=== PATIENT | male | born 1955 | race Caucasian/White ===

== ENCOUNTER 2023-11-04 19:50 | Inpatient (IN) | payer MEDICARE, OTHER, SELFPAY ==
[2023-11-04 17:17] VITALS: BP 155/82
[2023-11-04 17:17] LABS: Glucose - Point of Care 90 mg/dl (70-99)
[2023-11-04 17:22] VITALS: BMI 30.3
--- NOTE | 2023-11-04 17:22 | EDRN ---
Dr. Guerrero currently at the pts bedside
--- NOTE | 2023-11-04 17:34 | ED.GENMED ---
History of Present Illness
General
Chief Complaint: CVA/TIA Symptoms
Source: patient
Time Seen by Provider: 11/04/23 17:20
Travel History
Have you had any contact with someone who has COVID-19?: No
Do you have any symptoms of coronavirus? Fever > 100 degrees, chills, cough, shortness of breath, sore throat, loss of taste or smell, muscle aches, or headache?: No
History of Present Illness
History of Present Illness:
68-year-old gentleman who presents to the emergency room complaining of suffering a fall while going down his steps. Patient states he tripped and fell forward striking his face on the wall. No loss of consciousness. Patient noted to have a mild
left facial droop by triage. He has been having intermittent episodes of left arm and leg weakness and incoordination. He also has experienced some slurred speech. The symptoms lasted a few minutes at a time then go away. Patient denies having
headaches. Patient has not sought care for these episodes as of yet.
Phy Exam
Physical Exam
Physical Exam:
General: Awake, Alert, Oriented X3. No acute distress.
Vitals: unremarkable
Head: Atraumatic
Eyes: Pupils equal, EOMI
Throat: Airway intact, no exudates
Neck: Trachea midline
Lungs: Clear and equal b/l
Heart: Regular rate, no murmurs
Abd: Soft, Nontender, No pulsatile mass
Neuro: Left facial droop otherwise cranial nerves intact, muscle strength equal bilaterally, sensation intact, cerebellar exam normal
Skin: Warm, dry, no rash
Extremities: pulses equal b/l, no edema
Course
Orders/Labs/Results
Orders:
Orders
11/04/23 Dinner
1800 calorie (15 carb) Diabetic
At Your Request: Limited Participation
11/04/23 17:20
EKG [Electrocardiogram (*1)] Urgent
Reason for Study: Vertigo / Dizzy
11/04/23 17:21
EKG- Treatment ONCE
11/04/23 17:25
Complete Blood Count/With Diff Urgent
PTT Urgent
Prothrombin Time Urgent
11/04/23 17:29
CT Head W/o Iv Contrast Urgent
Comment:
Reason For Exam: intermittent lt facial droop, leg weakness, fall t
11/04/23 17:56
Comprehensive Metabolic Panel Urgent
11/04/23 18:33
Dexamethasone Sod Phosphate [Decadron] 10 mg IV NOW STA
Levetiracetam Injectable [Keppra] 3,000 mg IV NOW STA
11/04/23 18:34
Neurological Checks As Directed
Frequency: Per unit guidelines
11/04/23 18:35
MR Brain W/o & With Contrast Routine
Comment:
Reason For Exam: Evaluation for metastatic disease
Recent pill cam endoscopy?: No
11/04/23 19:30
Admit/Transfer Patient As Directed
Co-Sign Provider:
Level of Care: Inpatient admission
Assign to:: Medical/Surgical
Physician / Group: Hospitalist
Diagnosis: Right brain mass
Reason for Hospitalization: brain mass with mass effect and intermittent neurological deficit
Expected length of stay greater than two midnights?: Yes
ELOS- Estimated Length of Stay in days: 2
I certify the patient meets the requirements for IP care: Yes
11/04/23 19:32
Code Status As Directed
Resuscitation Status: Full Code
11/04/23 19:40
Bedside Glucose Monitoring As Directed
Frequency: AC&HS
Comment: Change to q6h if pt on TPN, tube feeding or not eating
11/04/23 21:20
Acetaminophen [Tylenol] 650 mg PO Q4HPRN PRN
Carvedilol [Coreg] 6.25 mg PO BID
Dextrose 50%-Water [Dextrose 50% Syringe] 12.5 grams IV [id number] PRN
Glucagon [GlucaGen] 1 mg IM PRN PRN
HydrALAZINE [Apresoline] 25 mg PO BID
Mag Hydrox/Al Hydrox/Simeth [Maalox] 30 ml PO Q6HPRN PRN
Ondansetron Injectable [Zofran] 4 mg IV Q6HPRN PRN
11/04/23 21:20
Activity As Directed
Activity Level: With Assistance
Vital Signs As Directed
Frequency: Per unit guidelines
DX Deep Vein Thrombosis Video Routine
11/05/23 06:00
EEG, 41-60 minutes IN AM
Reason for Exam: New seizures
Basic Metabolic Panel IN AM
Glycohemoglobin (HgbA1c) IN AM
Magnesium IN AM
11/05/23 07:30
Insulin Aspart Corrective Mod [Novolog Flexpen-Moderate Resistance] See Protocol SC AC
Insulin Aspart Pen [Novolog Flexpen] 16 units SC AC
11/05/23 08:00
Dexamethasone [Decadron] 4 mg PO Q8
Insulin Glargine Lantus [Lantus] 34 units Subcutaneous Insulin Syringe [Syringe-Insulin] 0 unit SC BID
Levetiracetam Injectable [Keppra] 1,000 mg IV Q12
11/05/23 18:00
Enoxaparin Sodium [Lovenox] 30 mg SC QPM
Rosuvastatin Calcium [Crestor] 5 mg PO QPM
Abnormal Lab Results
11/04/23 11/04/23
17:25 17:56
Absolute Neuts (auto) 6.8 H 10^3/uL
(1.4-6.5)
Absolute Monos (auto) 0.7 H 10^3/uL
(0.1-0.6)
Sodium 134 L mmol/L
(135-145)
BUN 32 H mg/dl
(9-20)
Creatinine 2.0 H mg/dL
(0.7-1.3)
11/04/23 17:25
11/04/23 17:56
Vital Signs
Initial and Last Documented VS:
Initial Vital Signs
Temp Pulse Resp BP Pulse Ox
97.6 F 86 17 155/82 99
11/04/23 17:17 11/04/23 17:17 11/04/23 17:17 11/04/23 17:17 11/04/23 17:17
Last Documented Vital Signs
Temp Pulse Resp BP Pulse Ox
97.3 F 78 18 128/68 96
11/04/23 22:06 11/04/23 22:17 11/04/23 22:06 11/04/23 22:17 11/04/23 22:06
MDM/Problems Addressed
Differential Diagnosis Includes:
Frequent TIAs, partial complex seizures, intracranial mass
MDM/Problems Addressed:
Patient does have a left facial droop here but the rest of his neuroexam is fairly intact. The history is not consistent with an acute ischemic event as his symptoms wax and wane and have been occurring for days to weeks. CT shows mass lesions on
the right. Patient will be admitted for IV Decadron, IV Keppra, neurology and neurosurgery evaluation.
*Radiology
Radiology exam reviewed: radiology read reviewed
*Pulse Oximetry
Patient hypoxic: no
*EKG
Interpreted by ED Provider?: Yes
Heart Rate: 77
Rate: normal
Rhythm: sinus
QRS Pattern: left vent hypertrophy
Ischemia: T-wave inversion (Laterally)
*Drilling Assistant Interpretation
Rate: normal
Interpretation: normal
Rhythm: sinus
*Critical Care Note
Total Time (30-74mins, 75-104mins- exclusive of procedures): 32 min
comment:
Critical care statement: A total of 32 minutes of critical care time was provided for this patient. This includes management of unstable vital signs, evaluation of the patient at bedside, reviewing the patient's pertinent medical records, discussion
with consultants, review of old EKGs and review of pertinent medical records. This time with separate from time utilized to perform the aforementioned documented procedures
ED Attending Note
-
Portions of this chart may have been created with voice recognition software.� Occasional wrong word or��sound alike� substitutions may have occurred due to the inherent limitations of voice recognition software.
Discharge Plan
Departure
Patient Disposition: Admit
Date of Disposition: 11/04/23
Time of Disposition: 18:49
Admit to: IMU
Presentation/result/management discussed w/ accepting MD/DO: Hospitalist
Condition: Fair
Discharge Problem:
Brain mass
Interventions
Interventions:
*Risk Screen - Suicide Last Done: 11/04/23 17:22
*General Assessment Last Done: 11/04/23 17:22
*Neglect/Abuse Screening Last Done: 11/04/23 17:22
ED- Fall Risk Assessment Last Done: 11/04/23 17:22
*ED COVID-19 Vaccine History Last Done: 11/04/23 17:22
*Nursing Disposition Last Done: 11/04/23 21:25
ED- Cardiac Assessment Last Done: 11/04/23 17:22
ED- Neurological Assessment Last Done: 11/04/23 17:22
ED- Pulmonary Assessment Last Done: 11/04/23 17:22
ED Swallowing Screen Last Done: 11/04/23 17:57
Discharge Date and Time
Discharge Date/Time: 11/04/23 21:26
[2023-11-04 17:38] LABS: % Basophils 0.3 % (0-2); % Eosinophils 1.5 % (0-6); % Immature Granulocytes 0.4 % (0-0.5); % Lymphocytes 25.4 % (20.5-51.1); % Monocytes 6.4 % (1.7-9.3); Absolute Eosinophils 0.2 10^3/uL (0-0.7); Absolute Lymphocytes 2.6 10^3/uL (1.2-3.4); Absolute Monocytes 0.7 10^3/uL (0.1-0.6); Absolute Neutrophils 6.8 10^3/uL (1.4-6.5); Hematocrit 44.4 % (39.0-52.0); Hemoglobin 15.5 g/dL (13.0-18.0); Mean Corp Hgb Conc. 34.9 g/dL (33.0-37.0); Mean Corpuscular Hgb 28.3 pg (27.0-31.0); Mean Corpuscular Volume 81.2 fL (80.0-94.0); Mean Platelet Volume 9.3 fL (7.4-10.4); Nucleated Red Blood Cells % 0 % (-); Platelet Count 262 10^3/uL (130-400); Red Blood Cell Count 5.47 10^6/uL (4.70-6.10); Red Cell Dist. Width 12.8 % (11.5-14.5); White Blood Cell Count 10.3 10^3/uL (4.8-10.8)
[2023-11-04 17:51] LABS: APTT 27.5 Sec (23.4-35.0); INR 0.99; PT 12.9 Sec (11.4-14.6)
[2023-11-04 18:11] VITALS: BP 147/71
[2023-11-04 18:13] LABS: ALT (SGPT) 15 U/L (0-50); AST (SGOT) 23 U/L (17-59); Albumin 4.2 g/dl (3.5-5.0); Alkaline Phosphatase 61 U/L (38-126); Blood Urea Nitrogen 32 mg/dl (9-20); Calcium 8.8 mg/dl (8.4-10.2); Carbon Dioxide 27 mmol/L (22-30); Chloride 104 mmol/L (98-107); Estimated Creatinine Clearance 40 ml/min; Glucose 93 mg/dl (70-99); Sodium 134 mmol/L (135-145); Total Bilirubin 0.8 mg/dl (0.2-1.3); Total Protein 7.7 g/dl (6.3-8.2); eGFR 36.13
[2023-11-04] MEDS: KEPPRA 3000 MG IV (18:48)
[2023-11-04] MEDS: DECADRON 10 MG IV (18:48)
[2023-11-04 19:00] VITALS: BP 126/64
--- NOTE | 2023-11-04 19:08 | HPS.HSE ---
Family Physician
-
Family Physician: Lizbeth Lucio
Chief Complaint
-
Left sided weakness, facial droop and fall.
History of Present Illness
This 68-year-old male with a past medical history of insulin-dependent diabetes, hypertension, CKD III, hyperlipidemia, CHF presenting to the emergency department with repeated episode of facial droop, left-sided weakness and falls.
According to patient and spouse symptoms was particularly prominent starting about 3 days ago when he had 2 episodes of facial droop that resolved spontaneously. then presumed that the next time started and happened she was able to brought to
the emergency department. Today the patient developed weakness in his left arm. He was unable to use his left but this also soon resolved. 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 No slurred speech,
dysphagia. Denies palpitations or lightheadedness. No prior CVA. Had recent cath for CHF evaluation with clean coronaries.
Patient denies headaches, nausea or vomiting. Denies seizures. Family hx of bone cancer in brother.
In ED he as afebrile and hemodynamically stable. Head CT showed a right hemispheric mass with mild mass effect and midline shift concerning for malignancy (lymphoma or GBM). ECG w/ NSR rate 77, TWI in lateral leads. CBC was unremakrable.
Chemsitries notable for Na of 134 and Cr of 2.0.
Medical History
Past Medical History
Past Medical History: Reports CHF, HTN, Hypercholesterolemia and IDDM
Past Surgical History: Reports None
Social History
Tobacco: Non-smoker
Alcohol: None
Drug: None
Personal:
Living: With Family
Employment: Employed
Family History
Family History: Cancer (Brother with bone cancer)
Allergies / Home Medications
Allergies reflects when Allergies were last updated in [facility].
Home Medications with original date entered in [facility]
Allergy/Medication List:
Allergies
Allergy/AdvReac Type Severity Reaction Status Date / Time
Shellfish *RETIRED-05/21/12 Allergy Shortness Verified 11/04/23 17:16
[Shellfish] of Breath
Home Medications
insulin glargine 100 unit/mL subcutaneous solution (Lantus U-100 Insulin) 24 units SQ BID 12/25/11
rosuvastatin 5 mg tablet 5 mg PO QPM 12/25/11
acetaminophen 325 mg tablet (Tylenol) 650 mg PO Q6HPRN PRN mild pain 11/04/23
aspirin 325 mg tablet 325 mg PO DAILY 11/04/23
carvedilol 6.25 mg tablet (Coreg) 6.25 mg PO BID 11/04/23
flaxseed oil 1,000 mg capsule 1,000 mg PO DAILY 11/04/23
hydralazine 25 mg tablet 25 mg PO BID 11/04/23
insulin lispro 100 unit/mL subcutaneous solution (Humalog U-100 Insulin) 24 unit SC AC 11/04/23
semaglutide 2 mg/dose (8 mg/3 mL) subcutaneous pen injector (Ozempic) 2 mg SC MURRAY@1700 11/04/23
Review of Systems
-
History Source: Patient and Family
Constitutional: Reports No Symptoms
EENT: Reports No Symptoms
Respiratory: Reports No Symptoms
Cardiac: Reports No Symptoms
Abdomen/GI: Reports No Symptoms
: Reports No Symptoms
Musculoskeletal: Reports No Symptoms
Skin: Reports No Symptoms
Neurological: Reports Weakness and Other (facial droop)
Endocrine: Reports No Symptoms
Hematologic/Lymphatic: Reports No Symptoms
Psych: Reports No Symptoms
Physical Exam
Vital Signs
Vital Signs
Temp Pulse Resp BP Pulse Ox
97.6 F 74 16 147/71 97
11/04/23 17:17 11/04/23 18:15 11/04/23 17:45 11/04/23 18:11 11/04/23 18:15
Physical Exam
General: Well Developed, Well Nourished and No Apparent Distress
HEENT: NormoCephalic, Anicteric, Moist mucous membranes, PERRLA, No Ptosis and Other (left facial droop)
Respiratory: Clear
Cardiac: S1/S2
Breast: Deferred by me
GI: Soft, Non Tender and Non Distended
Rectal: Deferred by Provider
Genito-urinary: Deferred by me
Musculoskeletal: No Clubbing, No Cyanosis and No Edema
Skin: Warm
Neuro: AO x 3, No Motor Deficits, No Sensory Deficits, DTR's Intact & Symmetrical and Facial Droop (left facial droop)
Hematologic/Lymphatic: No Lymphadenopathy
Psych: Calm
Laboratory Results
-
11/04/23 17:25
11/04/23 17:56
Laboratory Results
PT 12.9 Sec (11.4-14.6) 11/04/23 17:25
INR 0.99 11/04/23 17:25
APTT 27.5 Sec (23.4-35.0) 11/04/23 17:25
Total Bilirubin 0.8 mg/dl (0.2-1.3) 11/04/23 17:56
AST 23 U/L (17-59) 11/04/23 17:56
ALT 15 U/L (0-50) 11/04/23 17:56
Alkaline Phosphatase 61 U/L (38-126) 11/04/23 17:56
Data Reviewed
-
CT Scan: Report Reviewed by me
Lab Data: Labs Reviewed by me
Old Records: Reviewed
Impression/Plan
-
IMPRESSION:
68 y.o with IDDM, HTN, HLD, CKd and CHF presenting with left sided weakness and facial droop and found to have a right hemispheric mass with mild midline shift c/w malignancy. Labs unremarkable.
PLAN:
1. 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 Mild mass effect with left sided weakness and facial droop. Currently strenght is 5/5 in upper and lower extremity bilaterally. Facial droop is present at rest. No current seizure activity.
- admit to med/surg
- seizure ppx with keppra
- decadron started
- no indication for immediate transfer per neuro.
- MRI brain w/ contrast
- neuro consulted, surg consult pending
2. DM II - On insulin and ozemipic. Now on high dose steroids
- start with lantus 34 bid, humolog 24 with meals and moderate sliding scale
- diabetic diet.
3. CHF - NICM. No signs of volume overload. On GDMT
- continue coreg 6.25
- hydralazine 25 bid
- did not tolerate ACEI/ARB due to CKD
DVT PPX with lovenox sq
Code Status - Full Code
[2023-11-04 20:00] VITALS: BP 147/89
[2023-11-04 21:38] LABS: Glucose - Point of Care 83 mg/dl (70-99)
[2023-11-04 22:00] VITALS: BMI 29.7
[2023-11-04 22:05] VITALS: BMI 29.7
[2023-11-04 22:06] VITALS: BP 128/68
--- NOTE | 2023-11-04 22:15 | PTCARENOTE ---
Received pt from ED via stretcher. Stretcher placed next to bed, pt scooted over independently. at bedside. No complaints of pain. informed this RN pt has been having episodes of forgetfulness, confusion and weakness in his LLE and LUE,
worse in his LLE. AAOx3, forgetful, unsteady. Pt explained this has been his baseline. Assessed and oriented to room. Bed alarm placed and plugged in. Pt verbalized understanding of call amaya. Call amaya within close reach. Will continue to
monitor.
[2023-11-04] MEDS: COREG 6.25 MG PO (22:17)
[2023-11-04] MEDS: APRESOLINE 25 MG PO (22:17)
[2023-11-04] MEDS: MAALOX 30 ML PO (22:39)
[2023-11-04 23:15] VITALS: BP 130/70
[2023-11-05 00:11] VITALS: BP 130/70
[2023-11-05 03:00] VITALS: BP 119/66
[2023-11-05 05:54] VITALS: BMI 29.4
[2023-11-05 06:39] LABS: Blood Urea Nitrogen 35 mg/dl (9-20); Calcium 9.6 mg/dl (8.4-10.2); Carbon Dioxide 22 mmol/L (22-30); Chloride 102 mmol/L (98-107); Estimated Creatinine Clearance 37 ml/min; Glucose 180 mg/dl (70-99); Magnesium 1.8 mg/dl (1.6-2.3); Potassium 5.1 mmol/L (3.5-5.1); Sodium 134 mmol/L (135-145); eGFR 38.42
[2023-11-05 07:00] VITALS: BP 130/71
--- NOTE | 2023-11-05 08:50 | CON.NEURO4 ---
Consultation - Neurology 4
-
CONSULTING PHYSICIAN: Milka Hou
REFERRING PHYSICIAN: ER
DICTATED BY: Milka Hou
DATE/TIME OF REQUEST: 11/05/23
DATE/TIME OF CONSULTATION: 11/05/23
Reason for Consultation: Brain mass, episodic left sided face and arm weakness
History of Present Illness:
Patient is a 68 year old right handed man with history of hypertension, diabetes presented to hospital because of walking difficulties, left facial droop, noted difficulty with left hand strength and coordination over past couple of days. Patient
relates chronic headaches with no recent changes in these. In the past 1.5 months seems the patient has had about 3 episodes of short lasting left facial weakness that have seemed similar and reverts to normal quickly. No abnormal jerking or
movements have been observed. There has been difficulty walking for the past few months. More recently there was clearly noticed left facial weakness that became more constant and patient noted significant difficulty in handling utensils and tools
in the left hand. He has no previous history of any cancer type, has not ever been a smoker. Had colonoscopy about 12 years ago. No unusual weight loss. He has been driving without any problems.
Past Medical History: Hypertension, diabetes mellitus, non-obstructive coronary artery disease
Surgical History: Vasectomy
Family History: Non-contributory
Social History: Patient is retired electrical panel builder, was in the army as well, and lives with his in the [facility] area and has 5 adult children, no tobacco, no significant alcohol use.
Review of Symptoms:
Patient denies any fever, headache, chest pain, shortness of breath, GI or symptoms.
Physical Exam:
Well appearing middle aged man no acute distress, no signs head or neck trauma, oropharynx clear, eyes clear, no neck masses, heart rate regular no murmur appreciated, breathing unlabored, abdomen soft non tender, no lower extremity edema, rash, or
joint deformity seen
Neurologic Examination:
Mental Status: Awake and alert, conversational and appropriate, no aphasia, no neglect, praxis is normal, fully oriented and answers all questions appropriately, good historian and good insight
Cranial Nerves: Left facial droop apparent at rest, with smiling face largely symmetric, no dysarthria, extra ocular movements are full, visual ladd are normal to confrontation, no ptosis, pupils 3 mm equal round and reactive to light bilaterally
Motor: Left arm mild weakness of shoulder abduction, arm flexion, and slowed left hand fine finger and hand movements, left leg weakness apparent with walking, normal bulk and tone
Sensory: Intact to light touch and symmetric
Reflexes: 2+ symmetric biceps triceps patella and achilles
Coordination: Decreased left hand and finger coordination, no ataxia on finger to nose testing bilaterally
Gait: Needs assistance, left leg weakness, unsteady
Neuro Imaging:
CT head non contrast
IMPRESSION:
In the right hemisphere, there are several focal areas of subtle increased density with associated mass effect and subfalcine shift from right to left.
These likely represent neoplasia. Main differential considerations of metastatic disease, multicentric glioblastoma multiforme, and lymphoma. Further evaluation MRI of the brain without and with contrast would likely be helpful.
Impressions
1. 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 Unknown primary at this point.
2. High suspicion that patient has had a couple of episodes of focal seizure involving right face weakness, no loss of consciousness. Patient and report 3 episodes of short lasting similar episodes of left facial weakness, some left arm and
leg weakness it seems as well.
3.
4.
Recommendations:
1. Continue Dexamethasone 4 mg TID given findings suggestive of cerebral edema with mild midline shift, follow blood glucose and may need adjustments in medications for diabetes
2. Continue Levetiracetam 500 mg BID, discussed with patient that it does seem likely that there have been some episodes concerning for seizure, will warrant reporting to [place] [facility] and patient understands would need to be free of seizures for 6
months before this restriction can be lifted, additionally even if patient had had no episodes concerning for seizure the presence of brain lesions I feel makes driving unsafe for the time being
3. EEG has been obtained
4. Check MRI of the brain with and without contrast
5. Anticipate patient will need CT chest abdomen and pelvis with contrast to search for a primary malignancy
6. Neurosurgical consultation
7. Neurologic checks
8. Discussed neurologic signs and symptoms to monitor for that would warrant immediate medical attention including severe headache, confusion, generalized seizures, paralysis
9. Would hold aspirin for now until lesions are better characterized on MRI brain
Discussed patient care with: Patient, hospitalist
Allergies
-
Allergies
Allergy/AdvReac Type Severity Reaction Status Date / Time
Shellfish *RETIRED-05/21/12 Allergy Shortness Verified 11/04/23 17:16
[Shellfish] of Breath
Home Medications
-
Home Medications
insulin glargine 100 unit/mL subcutaneous solution (Lantus U-100 Insulin) 24 units SQ BID 12/25/11
rosuvastatin 5 mg tablet 5 mg PO QPM 12/25/11
acetaminophen 325 mg tablet (Tylenol) 650 mg PO Q6HPRN PRN mild pain 11/04/23
aspirin 325 mg tablet 325 mg PO DAILY 11/04/23
carvedilol 6.25 mg tablet (Coreg) 6.25 mg PO BID 11/04/23
flaxseed oil 1,000 mg capsule 1,000 mg PO DAILY 11/04/23
hydralazine 25 mg tablet 25 mg PO BID 11/04/23
insulin lispro 100 unit/mL subcutaneous solution (Humalog U-100 Insulin) 24 unit SC AC 11/04/23
semaglutide 2 mg/dose (8 mg/3 mL) subcutaneous pen injector (Ozempic) 2 mg SC MURRAY@1700 11/04/23
Vital Signs / Labs
-
Vital Signs and Labs:
Temp Pulse Resp BP Pulse Ox
97.8 F 86 16 130/71 96
11/05/23 07:00 11/05/23 07:00 11/05/23 07:00 11/05/23 07:00 11/05/23 07:00
11/04/23 17:25
11/05/23 05:52
11/04/23 11/04/23 11/05/23
17:25 17:56 05:52
Absolute Neuts (auto) 6.8 H
Absolute Monos (auto) 0.7 H
Sodium 134 L 134 L
BUN 32 H 35 H
Creatinine 2.0 H 1.9 H
Glucose 180 H
[2023-11-05 09:08] LABS: Glycohemoglobin (HgbA1c) 7.2 % (4.0-5.6)
[2023-11-05 09:20] LABS: Glucose - Point of Care 155 mg/dl (70-99)
[2023-11-05] MEDS: COREG 6.25 MG PO ×2 (09:34→21:31)
[2023-11-05] MEDS: APRESOLINE 25 MG PO ×2 (09:34→21:30)
[2023-11-05] MEDS: DECADRON 4 MG PO ×2 (09:38→16:57)
--- NOTE | 2023-11-05 09:45 | EEG.RPT ---
Electroencephalogram Report
Recording
Date of EE11/05/23
Type of EEG: Routine
Length of EEG recordin minutes
Done with Video Recording: Yes
Patient Status: Inpatient
Recording Conditions: Awake and Drowsy
Hyperventilation Performed: No
Photic Stimulation Performed: Yes
Report
LESS THAN 1 HOUR EEG REPORT
EEG INTERPRETATION:
Unremarkable EEG for age
CLINICAL CORRELATION:
A normal EEG does not rule out a diagnosis of epilepsy. If clinical suspicion for seizure persists, a prolonged recording may be warranted.
Clinical correlation is advised.
METHODS:
A 21 channel digitized electroencephalogram (EEG) was performed in the [facility]. The 10/20 international system of electrode placement was used with ECG and lateral/vertical eye movements recorded. Persyst quantitative EEG
analysis was performed.
ELECTROENCEPHALOGRAPHER IMPRESSION(S):
Quality of study
Fair, with electrical artifacts
Background
Unremarkable, well maintained, low amplitude alpha-frequency and unremarkable anterior-posterior voltage gradient
With eye opening the background activity changed to a low voltage mixture of frequencies.
Sleep
Drowsiness present
Photic Stimulation
Did not activate the record
ECG
Normal sinus rhythm
[2023-11-05] MEDS: NOVOLOG FLEXPEN 10 UNITS SC ×3 (10:08→16:57)
[2023-11-05] MEDS: NOVOLOG FLEXPEN-MODERATE RESISTANCE 1 UNITS SC (10:09)
--- NOTE | 2023-11-05 10:21 | W.PN.HOSP.TC ---
Today's Communication/Plan
-
Monitor vital signs see plan
MRI
Likely will need aguirre CT
Continue with Keppra, Decadron per neurology
Neurochecks
Ua
monitor renal function
Assessment / Plan
Assessment / Plan
Ambulatory dysfunction with left sided weakness and facial droop
CT with possible neoplasia
MRI pending
neurology following
started on IV keppra,Decadron
EEG
likely would need Aguirre CT after MRI; no hx of malignancy. Per patient brother had bone cancer when he was in his 30s
Non smoker. Had cscope couple years ago which was poor prep. before that it was around 10 years ago which per was normal
PSA level checked with pcp per spouse was normal
denies any weight loss
Does have significant left LE weakness which is attributed to hx of diabetic amyotrophy
hx of cardiomyopathy
sees Dr Mendoza outpatient
cw coreg,hydralazine
Mild hyponatremia
monitor
hx of diabetic amyotrophy
monitor
recent EMG outpatient
hx of DM
cw lantus and lispro
A1c 7.2
HLD
statin
Suspect CKD
monitor creatinine
UA
bladder scan
denies hematuria
DVTppx
lovenox
Full code
Discussed in length with patient and spouse.
I spent a total of 53 minutes with the patient or on the floor. More than 50% of this time involved counseling and coordination of care.
Anticipated Discharge: 24 - 48 hours
Subjective/Interval History
-
Date of Service: November 05, 2023
denies headache
Objective Data
-
Labs:
Laboratory Results
11/05/23
05:52
Sodium 134 L
Potassium 5.1 D
Chloride 102
Carbon Dioxide 22
BUN 35 H
Creatinine 1.9 H
Glucose 180 H
Calcium 9.6
Vital Signs:
Vital Signs
Temp Pulse Resp BP Pulse Ox
97.8 F 86 16 130/71 96
11/05/23 07:00 11/05/23 07:00 11/05/23 07:00 11/05/23 07:00 11/05/23 07:00
I&O
11/04/23 11/05/23 11/06/23
06:59 06:59 06:59
Intake Total 120 / 120
Balance 120 / 120
Physical Exam
-
General: Well Nourished and No Apparent Distress
HEENT: Atraumatic and Moist Mucous Membranes
Respiratory: Clear to Auscultation and Non Labored Respirations; Negative Wheezes
Cardiac: Regular Rhythm and S1/S2
Breast: Deferred by me
GI: Soft, Nontender, Nondistended and Normal Bowel Sounds
Rectal: Deferred by Provider
Genito-urinary: Negative Tavera
Musculoskeletal: No Edema
Neuro: Awake, Alert, Oriented, AO x 3, Facial Droop and Other (left LE motor 3/5)
Psych: Calm
Data Reviewed
-
Diagnostic Radiology: Report Reviewed by me, Discussed with Physician, Discussed with Patient and Discussed with Family
[2023-11-05] MEDS: KEPPRA 1000 MG IV (11:07)
[2023-11-05] MEDS: LANTUS 0.239999999999999991 UNITS SC ×2 (11:32→21:32)
[2023-11-05] MEDS: TYLENOL 650 MG PO (11:32)
[2023-11-05 12:06] LABS: Glucose - Point of Care 253 mg/dl (70-99)
[2023-11-05] MEDS: NOVOLOG FLEXPEN-MODERATE RESISTANCE 5 UNITS SC (13:20)
[2023-11-05 15:00] VITALS: BP 119/66
[2023-11-05 16:08] LABS: Urine Albumin Negative (Neg - Trace); Urine Bilirubin Negative (Negative); Urine Character Clear (Clear); Urine Color Yellow; Urine Glucose 3+ (Negative); Urine Ketone Negative (Negative); Urine Leukocyte Negative (Negative); Urine Nitrite Negative (Negative); Urine Occult Blood Negative (Negative); Urine Urobilinogen Negative (Neg - 1+)
[2023-11-05 16:54] LABS: Glucose - Point of Care 363 mg/dl (70-99)
[2023-11-05] MEDS: NOVOLOG FLEXPEN-MODERATE RESISTANCE 9 UNITS SC (16:57)
[2023-11-05] MEDS: CRESTOR 5 MG PO (17:00)
[2023-11-05] MEDS: LOVENOX 30 MG SC (17:00)
[2023-11-05 20:00] VITALS: BP 150/78
[2023-11-05 21:24] LABS: Glucose - Point of Care 261 mg/dl (70-99)
[2023-11-05] MEDS: KEPPRA 500 MG PO (21:31)
[2023-11-05 23:44] VITALS: BP 138/77
[2023-11-06] MEDS: DECADRON 4 MG PO ×2 (01:19→07:51)
--- NOTE | 2023-11-06 02:35 | PTCARENOTE ---
Patient Fall: At 2119 patient ambulated to BR x1 assist. Patient requesting privacy, instructed patient to not get up without assistance and RN would be right outside door. patient verb understanding and reassured RN he would not get up. Thierno heard,
patient found almost completely lowered to floor, patient states he attempted to pull his pants up and lost his footing. patient denies hitting head and denies any injuries. Patient instructed to not attempt to get oob and the need to use
urinal/commode moving forward. patient verb understanding. bed alarm on. LAWYER notified and evaluated patient, nsg electrical supervisor notified.
[2023-11-06 06:00] VITALS: BMI 29.4
[2023-11-06 06:57] LABS: % Basophils 0.1 % (0-2); % Immature Granulocytes 0.3 % (0-0.5); % Lymphocytes 9.8 % (20.5-51.1); % Monocytes 2.6 % (1.7-9.3); % Neutrophils 87.2 % (42.2-75.2); Absolute Immature Granulocytes 0.1 10^3/uL (0-0.05); Absolute Lymphocytes 1.8 10^3/uL (1.2-3.4); Absolute Monocytes 0.5 10^3/uL (0.1-0.6); Absolute Neutrophils 15.5 10^3/uL (1.4-6.5); Hemoglobin 13.5 g/dL (13.0-18.0); Mean Corp Hgb Conc. 34.6 g/dL (33.0-37.0); Mean Corpuscular Hgb 29.1 pg (27.0-31.0); Mean Corpuscular Volume 84.1 fL (80.0-94.0); Mean Platelet Volume 10.3 fL (7.4-10.4); Nucleated Red Blood Cells % 0 % (-); Platelet Count 247 10^3/uL (130-400); Red Blood Cell Count 4.64 10^6/uL (4.70-6.10); Red Cell Dist. Width 12.4 % (11.5-14.5); White Blood Cell Count 17.8 10^3/uL (4.8-10.8)
[2023-11-06 07:23] LABS: ALT (SGPT) 15 U/L (0-50); AST (SGOT) 19 U/L (17-59); Alkaline Phosphatase 54 U/L (38-126); Blood Urea Nitrogen 43 mg/dl (9-20); Calcium 9.5 mg/dl (8.4-10.2); Carbon Dioxide 24 mmol/L (22-30); Chloride 99 mmol/L (98-107); Estimated Creatinine Clearance 33 ml/min; Glucose 256 mg/dl (70-99); Potassium 5.2 mmol/L (3.5-5.1); Sodium 132 mmol/L (135-145); Total Bilirubin 0.9 mg/dl (0.2-1.3); Total Protein 7.3 g/dl (6.3-8.2); eGFR 34.08
[2023-11-06 07:29] VITALS: BP 137/86
[2023-11-06] MEDS: APRESOLINE 25 MG PO (07:51)
[2023-11-06] MEDS: COREG 6.25 MG PO (07:51)
[2023-11-06] MEDS: KEPPRA 500 MG PO (07:51)
[2023-11-06 07:54] LABS: Glucose - Point of Care 229 mg/dl (70-99)
[2023-11-06] MEDS: LANTUS 0.239999999999999991 UNITS SC (08:27)
[2023-11-06] MEDS: NOVOLOG FLEXPEN 10 UNITS SC ×3 (08:27→17:47)
[2023-11-06] MEDS: NOVOLOG FLEXPEN-MODERATE RESISTANCE 3 UNITS SC (08:27)
[2023-11-06] MEDS: OMNIPAQUE 50 ML PO (10:08)
--- NOTE | 2023-11-06 11:03 | W.PN.NEURO.1 ---
Today's Communication / Plan
-
Continue Dexamethasone 4 mg TID given findings suggestive of cerebral edema with mild midline shift
Continue Levetiracetam [address] chest abdomen and pelvis with contrast
Hematology oncology consultation will be of benefit
Neurosurgical consultation will be requested
Neuro Assessment/Plan
Assessment
IMPRESSION:
Gait dysfunction and left sided dysfunction
Impressions
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
2.� � High suspicion that patient has had a couple of episodes of focal seizure involving right face weakness, no loss of consciousness.� Patient and report 3 episodes of short lasting similar episodes of left facial weakness, some left arm and
leg weakness it seems as well.
EEG has been obtained, no clear evidence of seizures
MRI of the brain with and without contrast suggestive of right-sided
Plan
Recommendations:�
Continue Dexamethasone 4 mg TID given findings suggestive of cerebral edema with mild midline shift
Continue Levetiracetam [address] chest abdomen and pelvis with contrast
Hematology oncology consultation will be of benefit
Neurosurgical consultation will be requested
We will follow
Subjective/Objective
Subjective Data
Date of Service: November 06, 2023
Patient reports dizziness with movement. No known modifying factors.
Objective Data
Vital Signs
Temp Pulse Resp BP Pulse Ox
36.4 C 84 22 137/86 97
11/06/23 07:29 11/06/23 07:29 11/06/23 07:29 11/06/23 07:29 11/06/23 07:29
Lab Results
11/06/23 06:07
11/06/23 06:07
PT 12.9 Sec (11.4-14.6) 11/04/23 17:25
INR 0.99 11/04/23 17:25
APTT 27.5 Sec (23.4-35.0) 11/04/23 17:25
Sodium 132 mmol/L (135-145) L 11/06/23 06:07
Potassium 5.2 mmol/L (3.5-5.1) H 11/06/23 06:07
BUN 43 mg/dl (9-20) H 11/06/23 06:07
Glucose 256 mg/dl (70-99) H 11/06/23 06:07
Calcium 9.5 mg/dl (8.4-10.2) 11/06/23 06:07
Patient Allergies
Shellfish *RETIRED-05/21/12 [Shellfish] Allergy (Verified 11/04/23 17:16)
Shortness of Breath
Review of Systems
-
History Source: Patient
All other systems: Reviewed and negative
EENT: Negative Blurry Vision, Decreased Vision or Swallowing Difficulty
Respiratory: Negative Trouble Breathing
Cardiac: Negative Chest Pain
Abdomen/GI: Negative Incontinence of Stool
Genitourinary: Negative Incontinence
Musculoskeletal: Negative Back Pain or Neck Pain
Neuro: Dizzy; Negative Headache
Data Reviewed
-
CT Head: Report Reviewed
MRI Head: Report Reviewed and Image Reviewed
Labs: Report Reviewed
Reviewed with: Physician, Nurse Practioner, Patient and Family
Old Records: Summarized
Medications
-
Medications:
Generic Name Dose Route Start Last Admin
Trade Name Freq PRN Reason Stop Dose Admin
Acetaminophen 650 mg 11/04/23 21:20 11/05/23 11:32
Acetaminophen 325 Mg Tablet PO 12/02/23 21:19 650 mg
Q4HPRN PRN Administration
mild pain/MOCTEZUMA/temp> 100.4F
Al Hydrox/Mg Hydrox/Simethicone 30 ml 11/04/23 21:20 11/04/23 22:39
Mag/Al/Simethicone Suspension 30 Ml Cup PO 12/02/23 21:19 30 ml
Q6HPRN PRN Administration
Heartburn
Carvedilol 6.25 mg 11/04/23 21:20 11/06/23 07:51
Carvedilol 6.25 Mg Tablet PO 12/02/23 21:19 6.25 mg
BID RICHARD Administration
Dexamethasone 4 mg 11/05/23 08:00 11/06/23 07:51
Dexamethasone 4 Mg Tablet PO 12/03/23 07:59 4 mg
Q8 RICHARD Administration
Dextrose 12.5 grams 11/04/23 21:20
Dextrose 50% (0.5 Grams/Ml) 50 Ml Syringe IV 12/02/23 21:19
[id number] PRN
hypoglycemia
Protocol
Enoxaparin Sodium 30 mg 11/05/23 18:00 11/05/23 17:00
Enoxaparin Sodium 30 Mg/0.3 Ml Syringe SC 12/03/23 17:59 30 mg
QPM RICHARD Administration
Glucagon 1 mg 11/04/23 21:20
Glucagon 1 Mg Vial IM 12/02/23 21:19
PRN PRN
hypoglycemia
Protocol
Hydralazine HCl 25 mg 11/04/23 21:20 11/06/23 07:51
Hydralazine 25 Mg Tablet PO 12/02/23 21:19 25 mg
BID RICHARD Administration
Insulin Glargine 24 units/ 0.24 mls @ 0 mls/hr 11/05/23 08:00 11/06/23 08:27
Device SC 12/03/23 07:59 0.24 mls
BID RICHARD Administration
As Directed
Insulin Aspart 0 units 11/05/23 07:30 11/06/23 08:27
Insulin Aspart Moderate Resistance 300 Units/3 Ml Pen.Injctr SC 12/03/23 07:29 3 units
AC RICHARD Administration
Protocol
Insulin Aspart 10 units 11/05/23 08:00 11/06/23 08:27
Insulin Aspart (100 Units/Ml) 3 Ml Flexpen SC 12/03/23 07:59 10 units
AC RICHARD Administration
Levetiracetam 500 mg 11/05/23 20:00 11/06/23 07:51
Levetiracetam Solution (500 Mg/5 Ml) Cup PO 12/03/23 19:59 500 mg
BID RICHARD Administration
Ondansetron HCl 4 mg 11/04/23 21:20
Ondansetron 4 Mg/2 Ml Vial IV 12/02/23 21:19
Q6HPRN PRN
nausea and vomiting
Rosuvastatin Calcium 5 mg 11/05/23 18:00 11/05/23 17:00
Rosuvastatin (Crestor) 5 Mg Tablet PO 12/03/23 17:59 5 mg
QPM RICHARD Administration
Sodium Chloride 0 flush 11/04/23 20:00
Sodium Chloride 0.9% (Flush) Syringe IV 12/02/23 19:59
PER PROTOCOL RICHARD
--- NOTE | 2023-11-06 11:23 | W.PN.HOSP.TC ---
Today's Communication/Plan
-
see bold
Assessment / Plan
Assessment / Plan
Gen: NAD, AAOx3.
Eyes: EOMI, PERRLA, no scleral icterus.
Neck: supple.
CV: RRR, +S1/S2, no m/r/g.
Resp: CTAB, no rales, wheezes, or rhonchi.
Abd: +BS, soft, NT, ND
Skin: No rashes.
Neuro: Mild L facial droop, LUE 4/5, decreased L hand gripstrength
Psych: calm, normal affect
Echo 06/21/23: Left ventricle is mildly dilated. Moderately reduced left ventricular systolic
�function. Global hypokinesis.� Appears dyssynchronous.� Mild concentric left
�ventricular hypertrophy. Left ventricular ejection fraction is 30-35%. Stage I
�diastolic dysfunction suggestive of abnormal relaxation.
�Normal right ventricular size and function.
�Trileaflet aortic valve.� Calcified aortic valve leaflets . Aortic sclerosis
�without stenosis. No aortic regurgitation is seen.
�Tricuspid valve opens normally. Trace tricuspid regurgitation. Estimated
�pulmonary artery pressure of 20-25 mmHg. Assuming a right atrial pressure of 3
�mmHg.
�Compared to prior study 07/12/2016 ejection fraction previously visually was 40%
�currently 30 to 35%.
Ambulatory dysfunction with left sided weakness and facial droop:
-MRI brain:
1. � Large 10 cm infiltrative poorly circumscribed intra-axial mass in the right basal ganglia, right thalamus, right insular cortex, right temporal lobe, right parietal lobe, and right midbrain causing mass effect with effacement of the right
lateral ventricle and 5 mm right to left midline shift. Diagnostic possibilities are (1) MALIGNANT GLIOBLASTOMA MULTIFORM, (2) less likely primary ACCOUNT ADMINISTRATOR lymphoma, or (3) less likely metastatic disease.
2. � No MRI evidence for obstructive hydrocephalus or brain herniation.
3. � No MRI evidence for acute intracranial hemorrhage.
-neurology following.
-c/s neurosurgery and oncology
-check CT C/A/P with PO/IV. Start NS @ 50cc/hr as pt with elevated Cr getting IV contrast (pt needs this study as ordered) but also EF 30%.
-cont Keppra/Decadron
Chronic HFrEF:
-considering complexity of the case, IV contrast, etc, c/s cardiology
-cont Coreg
-repeat echo
Other problems:
Hyperkalemia: IV reg insulin now (no D50W needed as BG just now > 300).
LLE weakness which is attributed to hx of diabetic amyotrophy
Hyponatremia, mild
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
HLD: Cont statin
Likely CKD3b: c/s renal
Family updated at bedside
FULL/Lovenox
Total time spent on today's encounter was 50 minutes which included time spent in counseling the patient/family regarding diagnosis and treatment plan as listed above, goals of care, and symptom management. Case was discussed with nursing staff,
specialists, and care coordinators/case management. All labs and imaging personally reviewed by me. Remainder the time spent in detailed review of previous records, lab data, imaging, and other medical provider documentation.
Anticipated Discharge: > 48 hours
Subjective/Interval History
-
Date of Service: November 06, 2023
No new complaints.
Objective Data
-
Labs:
Laboratory Results
11/06/23
06:07
WBC 17.8 H
Hgb 13.5
Hct 39.0
Plt Count 247
Sodium 132 L
Potassium 5.2 H
Chloride 99
Carbon Dioxide 24
BUN 43 H
Creatinine 2.1 H
Glucose 256 H
Calcium 9.5
Total Bilirubin 0.9
AST 19
ALT 15
Alkaline Phosphatase 54
Vital Signs:
Vital Signs
Temp Pulse Resp BP Pulse Ox
97.6 F 84 22 137/86 97
11/06/23 07:29 11/06/23 07:29 11/06/23 07:29 11/06/23 07:29 11/06/23 07:29
I&O
11/05/23 11/06/23 11/07/23
06:59 06:59 06:59
Intake Total 120 / 120 1020 / 1020
Output Total 625 / 625
Balance 120 / 120 395 / 395
[2023-11-06 11:30] VITALS: BP 140/75; PULSE 68; O2SAT 97
[2023-11-06 11:48] LABS: Glucose - Point of Care 326 mg/dl (70-99)
[2023-11-06 11:55] VITALS: BP 140/75; PULSE 68; O2SAT 97
--- NOTE | 2023-11-06 13:03 | CON.ONC ---
Impression
Impression
Primary brain tumor
Ambulatory dysfunction with left sided weakness and facial droop
Chronic HFrf
CKD
Plan
Plan
Hematology is asked to give recommendations on this patient with a primary brain tumor causing neurological deficits. Patient has a strong family history of malignancy. No personal history of cancer.
Continue steroids for inflammation
Keppra for seizures
Denies h/o epistaxis, hematochezia, melena, past blood transfusions.
Waiting for neurosurgery to see the patient.
Presumed primary CHIEF GREEN OFFICER lymphoma or glioblastoma.
Agree with brain biopsy.
CT scan of abdomen and pelvis :
1. Few tiny bilateral pulmonary nodules, which are nonspecific but are not considered highly suspicious for pulmonary metastases.
2. No other CT evidence for malignancy or metastatic disease in the chest, abdomen, or pelvis.
Patient History
History of Present Illness
Patient is a 68 year old right handed man with history of hypertension, diabetes presented to hospital because of walking difficulties, left facial droop, noted difficulty with left hand strength and coordination over past couple of days.� Patient
relates chronic headaches with no recent changes in these.� In the past 1.5 months seems the patient has had about 3 episodes of short lasting left facial weakness that have seemed similar and reverts to normal quickly.� No abnormal jerking or
movements have been observed.� There has been difficulty walking for the past few months.� More recently there was clearly noticed left facial weakness that became more constant and patient noted significant difficulty in handling utensils and tools
in the left hand.� He has no previous history of any cancer type, has not ever been a smoker.� Had colonoscopy about 12 years ago.� No unusual weight loss.� He has been driving without any problems.
Past-Medical/Surgical History
Past Medical History: � Hypertension, diabetes mellitus, non-obstructive coronary artery disease
Surgical History:� Vasectomy
Patient Medication
Medication Instructions Recorded Confirmed Last Taken Type
insulin glargine 100 unit/mL 24 units SQ BID Diabetes 12/25/11 11/04/23 11/04/23 History
subcutaneous solution (Lantus
U-100 Insulin)
rosuvastatin 5 mg tablet 5 mg PO QPM High Cholesterol 12/25/11 11/04/23 11/03/23 History
acetaminophen 325 mg tablet 650 mg PO Q6HPRN PRN mild pain 11/04/23 11/04/23 11/01/23 History
(Tylenol)
aspirin 325 mg tablet 325 mg PO DAILY Blood Clot 11/04/23 11/04/23 11/04/23 History
Prevention/Tx
carvedilol 6.25 mg tablet (Coreg) 6.25 mg PO BID Heart 11/04/23 11/04/23 11/04/23 History
Disease/Condition
flaxseed oil 1,000 mg capsule 1,000 mg PO DAILY Supplement 11/04/23 11/04/23 11/04/23 History
hydralazine 25 mg tablet 25 mg PO BID Blood Pressure 11/04/23 11/04/23 11/04/23 History
insulin lispro 100 unit/mL 24 unit SC AC Diabetes 11/04/23 11/04/23 11/04/23 History
subcutaneous solution (Humalog
U-100 Insulin)
semaglutide 2 mg/dose (8 mg/3 mL) 2 mg SC MURRAY@1700 Diabetes 11/04/23 11/04/23 10/28/23 History
subcutaneous pen injector (Ozempic)
Active Medications
Generic Name Dose Route Start Last Admin
Trade Name Freq PRN Reason Stop Dose Admin
Acetaminophen 650 mg 11/04/23 21:20 11/05/23 11:32
Acetaminophen 325 Mg Tablet PO 12/02/23 21:19 650 mg
Q4HPRN PRN Administration
mild pain/MOCTEZUMA/temp> 100.4F
Al Hydrox/Mg Hydrox/Simethicone 30 ml 11/04/23 21:20 11/04/23 22:39
Mag/Al/Simethicone Suspension 30 Ml Cup PO 12/02/23 21:19 30 ml
Q6HPRN PRN Administration
Heartburn
Carvedilol 6.25 mg 11/04/23 21:20 11/06/23 07:51
Carvedilol 6.25 Mg Tablet PO 12/02/23 21:19 6.25 mg
BID RICHARD Administration
Dexamethasone 4 mg 11/06/23 18:00
Dexamethasone 4 Mg Tablet PO 12/04/23 17:59
Q6 RICHARD
Dextrose 12.5 grams 11/04/23 21:20
Dextrose 50% (0.5 Grams/Ml) 50 Ml Syringe IV 12/02/23 21:19
[id number] PRN
hypoglycemia
Protocol
Dextrose 25 grams 11/06/23 11:30
Dextrose 50% (0.5 Grams/Ml) 50 Ml Syringe IV 11/06/23 11:31
NOW STA
Docusate Sodium 100 mg 11/06/23 11:14
Docusate Sodium 100 Mg Capsule PO 12/04/23 11:13
BIDPRN PRN
no BM > 24 hours
Enoxaparin Sodium 30 mg 11/05/23 18:00 11/05/23 17:00
Enoxaparin Sodium 30 Mg/0.3 Ml Syringe SC 12/03/23 17:59 30 mg
QPM RICHARD Administration
Glucagon 1 mg 11/04/23 21:20
Glucagon 1 Mg Vial IM 12/02/23 21:19
PRN PRN
hypoglycemia
Protocol
Hydralazine HCl 25 mg 11/04/23 21:20 11/06/23 07:51
Hydralazine 25 Mg Tablet PO 12/02/23 21:19 25 mg
BID RICHARD Administration
Insulin Glargine 24 units/ 0.24 mls @ 0 mls/hr 11/05/23 08:00 11/06/23 08:27
Device SC 12/03/23 07:59 0.24 mls
BID RICHARD Administration
As Directed
Sodium Chloride 1,000 mls @ 50 mls/hr 11/06/23 13:00
Nss IV
.Q20H RICHARD
Insulin Aspart 0 units 11/05/23 07:30 11/06/23 08:27
Insulin Aspart Moderate Resistance 300 Units/3 Ml Pen.Injctr SC 12/03/23 07:29 3 units
AC RICHARD Administration
Protocol
Insulin Aspart 10 units 11/05/23 08:00 11/06/23 08:27
Insulin Aspart (100 Units/Ml) 3 Ml Flexpen SC 12/03/23 07:59 10 units
AC RICHARD Administration
Levetiracetam 500 mg 11/05/23 20:00 11/06/23 07:51
Levetiracetam Solution (500 Mg/5 Ml) Cup PO 12/03/23 19:59 500 mg
BID RICHARD Administration
Ondansetron HCl 4 mg 11/04/23 21:20
Ondansetron 4 Mg/2 Ml Vial IV 12/02/23 21:19
Q6HPRN PRN
nausea and vomiting
Rosuvastatin Calcium 5 mg 11/05/23 18:00 11/05/23 17:00
Rosuvastatin (Crestor) 5 Mg Tablet PO 12/03/23 17:59 5 mg
QPM RICHARD Administration
Sodium Chloride 0 flush 11/04/23 20:00
Sodium Chloride 0.9% (Flush) Syringe IV 12/02/23 19:59
PER PROTOCOL RICHARD
Physical Exam
-
Cardiology: S1 and S2
Pulmonary: Clear
GI: Soft and Normal Bowel Sounds
Extremities: No C/C/E
Labs
Lab Results
WBC 17.8 10^3/uL (4.8-10.8) H 11/06/23 06:07
RBC 4.64 10^6/uL (4.70-6.10) L 11/06/23 06:07
Hgb 13.5 g/dL (13.0-18.0) 11/06/23 06:07
Hct 39.0 % (39.0-52.0) 11/06/23 06:07
MCV 84.1 fL (80.0-94.0) 11/06/23 06:07
MCH 29.1 pg (27.0-31.0) 11/06/23 06:07
MCHC 34.6 g/dL (33.0-37.0) 11/06/23 06:07
RDW 12.4 % (11.5-14.5) 11/06/23 06:07
Plt Count 247 10^3/uL (130-400) 11/06/23 06:07
MPV 10.3 fL (7.4-10.4) 11/06/23 06:07
Abs Immat Gran (auto) 0.1 10^3/uL (0-0.05) H 11/06/23 06:07
Absolute Neuts (auto) 15.5 10^3/uL (1.4-6.5) H 11/06/23 06:07
Absolute Lymphs (auto) 1.8 10^3/uL (1.2-3.4) 11/06/23 06:07
Absolute Monos (auto) 0.5 10^3/uL (0.1-0.6) 11/06/23 06:07
Absolute Eos (auto) 0.0 10^3/uL (0-0.7) 11/06/23 06:07
Absolute Basos (auto) 0.0 10^3/uL (0-0.2) 11/06/23 06:07
Immature Gran % 0.3 % (0-0.5) 11/06/23 06:07
Neutrophils % 87.2 % (42.2-75.2) H 11/06/23 06:07
Lymphocytes % 9.8 % (20.5-51.1) L 11/06/23 06:07
Monocytes % 2.6 % (1.7-9.3) 11/06/23 06:07
Eosinophils % 0.0 % (0-6) 11/06/23 06:07
Basophils % 0.1 % (0-2) 11/06/23 06:07
Creatinine 2.1 mg/dL (0.7-1.3) H 11/06/23 06:07
Vital Signs
Vital Signs
Temp Pulse Resp BP Pulse Ox
97.6 F 84 22 137/86 97
11/06/23 07:29 11/06/23 07:29 11/06/23 07:29 11/06/23 07:29 11/06/23 07:29
--- NOTE | 2023-11-06 13:12 | CM ---
Reviewed chart, met with patient and his and daughter who were at bedside to obtain information for assessment. Patient stated that he lives with his in a two story home. He described himself as independent with his ADLs and personal care
as well as bathing and dressing. He drives and can get to all his appointments and does his own shopping. 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
Patient has two daughters who are hospitalists and his is a retired RN. His family is local and supportive
Patient has never had VN services. He has not been to a SNF.
Patient does not feel that he will have any needs at time of discharge and will be able to return home when stable.
Plan: Case management will continue to follow and assist with discharge planning. Patient would like to go home when medically cleared for discharge.
[2023-11-06 14:07] LABS: Glucose - Point of Care 315 mg/dl (70-99)
[2023-11-06] MEDS: NOVOLOG FLEXPEN-MODERATE RESISTANCE 7 UNITS SC (14:09)
[2023-11-06] MEDS: NOVOLIN R 0.100000000000000006 UNITS IV (14:10)
[2023-11-06] MEDS: NSS 1000 IV (14:12)
--- NOTE | 2023-11-06 14:13 | PTOTSP ---
SPEECH THERAPY SWALLOW EVALUATION:
Clinical signs of oropharyngeal dysphagia, likely chronic related to newly diagnosed brain mass. Patient reporting progressive dysphagia symptoms for past 1 month including increased difficulty/globus sensation with dry foods like popcorn, and x1
noted incident of significant coughing with liquid medication. Recommend Videofluoroscopic Swallow Study to further define swallow physiology. Given patient's current pulmonary status (breathing comfortably on room air) and chronicity of dysphagia,
patient appears safe to continue oral diet with aspiration precautions in place prior to VSE. Recommend Regular texture diet, thin liquids. Medications whole with liquid one at a time as tolerated. Aspiration precautions including: Upright
positioning; small single sips/bites; slow rate of intake; Overchew foods; Alternate textures between solids/liquids; avoid dry foods; 100% supervision with meals to ensure implementing strategies. Speech therapy to follow, provide further
recommendations following VSE, assess diet tolerance and modify as appropriate; provide continued education regarding aspiration risks/precautions; and complete full speech/language/cognitive communication evaluation. Discussed with RN and Dr. Baca
via tiger text.
RECOMMEND:
1) Videofluoroscopic Swallow Study
2) Regular texture diet, thin liquids
3) Medications whole with liquid one at a time as tolerated
4) Aspiration precautions including: Upright positioning; small single sips/bites; slow rate of intake; Overchew foods; Alternate textures between solids/liquids; avoid dry foods; 100% supervision with meals to ensure implementing strategies
5) Speech therapy to follow, provide further recommendations following VSE, assess diet tolerance and modify as appropriate; provide continued education regarding aspiration risks/precautions; and complete full speech/language/cognitive
communication evaluation
--- NOTE | 2023-11-06 14:47 | CON.NS ---
Chief Complaint
-
Left sided weakness
History of Present Illness
This is a very pleasant 68-year-old male presented to the hospital with complaints of left-sided weakness and facial droop. For the past 2 months he has been having difficulty using his left leg. Did have intermittent episodes of facial droop.
Which resolved on their own. The day of presentation he had a fall retirement down the steps. He had right eye ptosis as well as left upper and lower extremity weakness. CAT scan was completed of the head on 11/03 was concerning for neoplasm. MRI was
completed yesterday evening which is concerning for primary FEEDER ASSOCIATE neoplasm. Currently he notes some improvement in his left-sided weakness. His right eye ptosis has almost resolved.
Review of Systems
-
10 point review of systems was completed and is negative except stated in the HPI
Medication and Allergies
Home Medications
Home Medications
Medication Instructions Recorded
insulin glargine 100 unit/mL 24 units SQ BID Diabetes 12/25/11
subcutaneous solution (Lantus
U-100 Insulin)
rosuvastatin 5 mg tablet 5 mg PO QPM High Cholesterol 12/25/11
acetaminophen 325 mg tablet 650 mg PO Q6HPRN PRN mild pain 11/04/23
(Tylenol)
aspirin 325 mg tablet 325 mg PO DAILY Blood Clot 11/04/23
Prevention/Tx
carvedilol 6.25 mg tablet (Coreg) 6.25 mg PO BID Heart 11/04/23
Disease/Condition
flaxseed oil 1,000 mg capsule 1,000 mg PO DAILY Supplement 11/04/23
hydralazine 25 mg tablet 25 mg PO BID Blood Pressure 11/04/23
insulin lispro 100 unit/mL 24 unit SC AC Diabetes 11/04/23
subcutaneous solution (Humalog
U-100 Insulin)
semaglutide 2 mg/dose (8 mg/3 mL) 2 mg SC MURRAY@1700 Diabetes 11/04/23
subcutaneous pen injector (Ozempic)
Allergies
Allergies
Allergy/AdvReac Type Severity Reaction Status Date / Time
Shellfish *RETIRED-05/21/12 Allergy Shortness Verified 11/04/23 17:16
[Shellfish] of Breath
Physical Exam
-
Exam:
Is awake alert and oriented x 3
Cranial nerves II through XII are grossly intact except for his right eye which does show some mild ptosis.
Sensory is grossly intact
Motor strength testing reveals a left upper extremity drift with mild left upper and left lower extremity weakness.
Respirations even unlabored
MRI of the brain reveals 2 and even possibly 3 distinct lesions of the brain. In the right temporal lobe there is a 1-1/2 cm poorly enhancing lesion. Appears to be a smaller daughter lesion directly next to it. In the right basal ganglia there is
a 2 cm poorly enhancing lesion. There is a significant amount of cerebral edema.
Problems
-
Problem Status Onset Code
Brain mass G93.89
Assessment / Plan
-
Brain neoplasm
1. Brain neoplasm likely represents a primary brain tumor. 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 Subsequently I have held his Decadron with plans for biopsy.
2. Transfer to [place] for biopsy
3. Continue Keppra
4. Hold any anticoagulant or antiplatelet medications, okay to continue DVT prophylaxis
5. Further recommendations to be made once transferred
6. Awaiting official read of CT chest abdomen pelvis.
--- NOTE | 2023-11-06 14:48 | CON.CAR ---
Addendum entered and electronically signed by Yao Adkins DO 11/06/23 16:34:
I saw and examined the patient.
The Professor Of Sport Management's note was reviewed and I agree with the note.
Comment:
Plan:
Appears euvolemic with hx of CM.
Pt receiving gentle IVF for CT scan, monitor volume status.
Nephrology following cr, baseline unclear.
Pt being transferred for biopsy as per neurosurgery.
Reviewed with primary service and with family at bedside.
Original Note:
Consultation
Consultation Request
Date/Time Consultation Performed: 11/06/23
Requesting Provider: Dr. Baca
Performing Provider: Evelia Arnold PA-C for Dr. Adkins
Reason for Consultation: cardiac mgmt
Medical History
-
Chief Complaint: fall
History of Present Illness:
Patient is a 68-year-old male with past medical history of nonischemic cardiomyopathy with EF approximately 35%, hypertension, type 2 diabetes, hyperlipidemia who presented to [facility] after a fall. He has been noticing left-sided
weakness recently including difficulty with walking over the last several months, as well as left hand weakness and left facial weakness, intermittent. He had a fall 11/03/23 going down his steps. No LOC with event. Brain MRI with 10cm R brain mass.
Also with MARTA vs CKD. Given cardiac history and need for fluid in setting of renal insufficiency for CT scan, cardiology consulted for assistance with mgmt. He is not on standing diuretic as OP. Has not had recent weight loss/gain, LE edema, SOB. no
proBNP noted.
PMH:
Nonischemic cardiomyopathy, EF 35%
Hypertension
Hyperlipidemia
Type 2 diabetes
Past Medical History
Past Medical History: Other (in HPI )
Social History
Tobacco: Non-Smoker
Personal:
Living: With Family
Employment: Retired
Family History
Family History: Reviewed & Not Pertinent
Allergies / Home Medications
Allergy/AdvReac Type Severity Reaction Status Date / Time
Shellfish *RETIRED-05/21/12 Allergy Shortness Verified 11/04/23 17:16
[Shellfish] of Breath
Medication Instructions Recorded Confirmed Type
insulin glargine 100 unit/mL 24 units SQ BID Diabetes 12/25/11 11/04/23 History
subcutaneous solution (Lantus
U-100 Insulin)
rosuvastatin 5 mg tablet 5 mg PO QPM High Cholesterol 12/25/11 11/04/23 History
acetaminophen 325 mg tablet 650 mg PO Q6HPRN PRN mild pain 11/04/23 11/04/23 History
(Tylenol)
aspirin 325 mg tablet 325 mg PO DAILY Blood Clot 11/04/23 11/04/23 History
Prevention/Tx
carvedilol 6.25 mg tablet (Coreg) 6.25 mg PO BID Heart 11/04/23 11/04/23 History
Disease/Condition
flaxseed oil 1,000 mg capsule 1,000 mg PO DAILY Supplement 11/04/23 11/04/23 History
hydralazine 25 mg tablet 25 mg PO BID Blood Pressure 11/04/23 11/04/23 History
insulin lispro 100 unit/mL 24 unit SC AC Diabetes 11/04/23 11/04/23 History
subcutaneous solution (Humalog
U-100 Insulin)
semaglutide 2 mg/dose (8 mg/3 mL) 2 mg SC MURRAY@1700 Diabetes 11/04/23 11/04/23 History
subcutaneous pen injector (Ozempic)
Review of Systems
-
History Source: Patient and Family
All other systems: Negative unless noted
Physical Exam
Vital Signs
Temp Pulse Resp BP Pulse Ox
97.6 F 84 22 137/86 97
11/06/23 07:29 11/06/23 07:29 11/06/23 07:29 11/06/23 07:29 11/06/23 07:29
Lab Results
03/05/24 06:07
11/06/23 06:07
Physical Exam
General: No Apparent Distress and Comfortable
HEENT: Normocephalic, Anicteric and Moist Mucous Membranes
Respiratory: Clear and Non Labored Respirations
Cardiac: S1/S2 and Regular Rhythm
GI: Soft, Non Tender, Non Distended and Normal Bowel Sounds
Musculoskeletal: No Clubbing, No Cyanosis and No Edema
Skin: Warm and Dry
Neuro: AO x 3
Impression / Plan
-
Primary Chemical Packager: Dr. Mendoza
Assessment:
Presentation with fall
Ambulatory dysfunction
Large R brain mass
MARTA vs CKD
Hyperkalemia
Nonischemic cardiomyopathy, EF 35%
Hypertension
Hyperlipidemia
Type 2 diabetes
mild hyponatremia
ECHO 06/21/2023: Global hypokinesis, appears to synchronize, mild concentric LVH, EF 30 to 35%, stage I diastolic dysfunction, aortic sclerosis, trace TR, PAP 20 to 25 mmHg
Plan:
-Patient presented with fall ambulatory dysfunction and left-sided weakness. Found by imaging to have a large right-sided brain mass. Oncology and neurosurgery consulted. appears may be transferred to [facility] for biopsy
-Cardiology consulted for assistance with volume management in the setting of known nonischemic cardiomyopathy with EF 35%
-Currently appears euvolemic. Receiving gentle IV fluid in the setting of CT scan/contrast administration
-Last echo from 06/2023. Repeat echo ordered by primary service, and results pending. Continue Coreg as blood pressure allows
-Follow creatinine. Nephrology following. Baseline Cr unclear. Avoiding nephrotoxic agents
-Discussed with nursing. Discussed with patient and family at bedside
Data Reviewed
-
EKG: Tracing Personally Visualized and interpreted
CT Scan: Report Reviewed by me
MRI: Report Reviewed by me
Medical Tests (Nuc Med, Echo etc): Report Reviewed by me
Labs: Labs Reviewed by me
Old Records: Reviewed
[2023-11-06 15:55] VITALS: BP 153/73
[2023-11-06 16:11] LABS: Glucose - Point of Care 309 mg/dl (70-99)
--- NOTE | 2023-11-06 16:52 | W.CON.NEPH ---
Consultation
-
Date/Time Consultation Requested: 11/06/23 1128
Date/Time Consultation Performed: 11/06/23 at 1715
Requesting Provider: Florentin Evans
Performing Provider: Ivy Singleton
Reason for Consultation: MARTA
Medical History
-
Chief Complaint: fall and left side weakness with brain tumor
History of Present Illness:
Declan is 68-year-old male with a history of nonischemic cardiomyopathy EF of 35%, HTN on carvedilol, hydralazine, diabetes on Ozempic, hyperlipidemia on statin who was brought into the hospital yesterday after fall and left-sided weakness and
also intermittent facial droop, reportedly these symptoms were present for a few months, MRI shows 10 cm right brain mass With concern of Primary brain tumor GBM vs lymphoma which requires biopsy. He also underwent CT chest abdomen pelvis with
contrast today. His creatinine noted to be at 1.9-2.1 since admission hence nephrology consulted. He seem to have known CKD stage3 baseline cr 1.2-1.4 and in March hospitalization [facility] with MARTA, cr was 1.7, reportedly improved but high in
June at 1.7. He took heavy dose of Ibuprofen in fall 2022. Denies any dysuria. No CP or sob. no LE edema.
Past Medical History
Nonischemic cardiomyopathy, EF 35%
Hypertension
Hyperlipidemia
Type 2 diabetes
CKD3
Social History
Tobacco: Non-Smoker
Alcohol: None
Living: With Family
Family History
history of cancer father, brother and grandfather
Mother with diabetes
Family History: Not Pertinent
Allergies / Home Medications
Allergy/AdvReac Type Severity Reaction Status Date / Time
Shellfish *RETIRED-05/21/12 Allergy Shortness Verified 11/04/23 17:16
[Shellfish] of Breath
Medication Instructions Recorded Confirmed Type
insulin glargine 100 unit/mL 24 units SQ BID Diabetes 12/25/11 11/04/23 History
subcutaneous solution (Lantus
U-100 Insulin)
rosuvastatin 5 mg tablet 5 mg PO QPM High Cholesterol 12/25/11 11/04/23 History
acetaminophen 325 mg tablet 650 mg PO Q6HPRN PRN mild pain 11/04/23 11/04/23 History
(Tylenol)
aspirin 325 mg tablet 325 mg PO DAILY Blood Clot 11/04/23 11/04/23 History
Prevention/Tx
carvedilol 6.25 mg tablet (Coreg) 6.25 mg PO BID Heart 11/04/23 11/04/23 History
Disease/Condition
flaxseed oil 1,000 mg capsule 1,000 mg PO DAILY Supplement 11/04/23 11/04/23 History
hydralazine 25 mg tablet 25 mg PO BID Blood Pressure 11/04/23 11/04/23 History
insulin lispro 100 unit/mL 24 unit SC AC Diabetes 11/04/23 11/04/23 History
subcutaneous solution (Humalog
U-100 Insulin)
semaglutide 2 mg/dose (8 mg/3 mL) 2 mg SC MURRAY@1700 Diabetes 11/04/23 11/04/23 History
subcutaneous pen injector (Ozempic)
Review of Systems
-
All complete 12 point ROS have been inquired and found negative other than stated in HPI
Physical Exam
Vital Signs
Vital Signs
Temp Pulse Resp BP Pulse Ox
97.4 F 69 18 153/73 97
11/06/23 15:55 11/06/23 15:55 11/06/23 15:55 11/06/23 15:55 11/06/23 15:55
Lab Results
WBC 17.8 10^3/uL (4.8-10.8) H 11/06/23 06:07
RBC 4.64 10^6/uL (4.70-6.10) L 11/06/23 06:07
Hgb 13.5 g/dL (13.0-18.0) 11/06/23 06:07
Hct 39.0 % (39.0-52.0) 11/06/23 06:07
Plt Count 247 10^3/uL (130-400) 11/06/23 06:07
Sodium 132 mmol/L (135-145) L 11/06/23 06:07
Potassium 5.2 mmol/L (3.5-5.1) H 11/06/23 06:07
Chloride 99 mmol/L (98-107) 11/06/23 06:07
Carbon Dioxide 24 mmol/L (22-30) 11/06/23 06:07
BUN 43 mg/dl (9-20) H 11/06/23 06:07
Creatinine 2.1 mg/dL (0.7-1.3) H 11/06/23 06:07
eGFR 34.08 11/06/23 06:07
Glucose 256 mg/dl (70-99) H 11/06/23 06:07
Calcium 9.5 mg/dl (8.4-10.2) 11/06/23 06:07
Albumin 4.0 g/dl (3.5-5.0) 11/06/23 06:07
Echo: 11/06/23
CONCLUSIONS
�Normal left ventricular chamber size. Mild concentric left ventricular
�hypertrophy. Moderately reduced left ventricular systolic function. Global
�hypokinesis. Left ventricular ejection fraction is 35-40%.
�No significant valvular disease.
�Compared to the previous echo from Jun 2023, which was reviewed,� EF was 30-35%
�at that time.�
CT chest/abd/pelvis:
IMPRESSION:
1. Few tiny bilateral pulmonary nodules, which are nonspecific but are not considered highly suspicious for pulmonary metastases.
2. No other CT evidence for malignancy or metastatic disease in the chest, abdomen, or pelvis.
Brain MRI:
IMPRESSION:
1. � Large 10 cm infiltrative poorly circumscribed intra-axial mass in the right basal ganglia, right thalamus, right insular cortex, right temporal lobe, right parietal lobe, and right midbrain causing mass effect with effacement of the right
lateral ventricle and 5 mm right to left midline shift. Diagnostic possibilities are (1) MALIGNANT GLIOBLASTOMA MULTIFORM, (2) less likely primary TURBINE BLADE ASSEMBLER lymphoma, or (3) less likely metastatic disease.
2. � No MRI evidence for obstructive hydrocephalus or brain herniation.
3. � No MRI evidence for acute intracranial hemorrhage.
Electronically signed by Avery Tobias MD 11/05/2023 4:58 PM
Physical Exam
General: Awake, Alert and Oriented
HEENT: EOMI
Respiratory: Clear, Normal Excursion and Nonlabored Respirations
Cardiac: S1/S2 and Regular Rate/Rhythm
Abdomen: Soft, Nontender and Nondistended
Musculoskeletal: No Cyanosis and No Edema
Skin: No Rash
Neuro: Other (facial droop slight noted)
Psych: Mood/afflect pleasant, Insight/judgement good and Appropriate
Assessment/Plan
-
IMP:
Ambulatory dysfunction with left sided weakness and facial droop
Large R brain mass
MARTA with CKD3-cr at best was 1.2-1.4, was at 1.7 in Jun 2023
Mild Hyperkalemia
Nonischemic cardiomyopathy, EF 35%
Hypertension
Hyperlipidemia
Type 2 diabetes
mild hyponatremia
Plan:
A/w fall and left side weakness found to have large brain mass which requires biopsy
MARTA with CKD-no recent cr available
will continue IVF specially he is s/p contrast today
reviewed with pt and family about high risk of BLAYNE understanding that contrast study could not be avoided
UA is bland and no hydro on CT
follow bladder scan , monitor UOP
h/o hyperkalemia -will keep low k diet
avoid other nephrotoxins, no NSAIDs
plan to transfer to [facility] for biopsy today
BP stable on meds
known cardiomyopathy with stable vol status, not on diuretics
Hyponatremia likely from above, check U osmo, U na
d/w pt and family in detail
d/w nursing
Data Reviewed
-
Radiology: Report Reviewed by me
Labs: Labs Reviewed by me, Discussed with Nurse, Discussed with Patient and Discussed with Family
[2023-11-06 17:11] LABS: Glucose - Point of Care 271 mg/dl (70-99)
[2023-11-06] MEDS: LOVENOX 30 MG SC (17:48)
[2023-11-06] MEDS: NOVOLOG FLEXPEN-MODERATE RESISTANCE 5 UNITS SC (17:48)
[2023-11-06] MEDS: CRESTOR 5 MG PO (17:48)
--- NOTE | 2023-11-07 16:05 | W.DCSUMMARY ---
Discharge Summary
Discharge Data
Date of Admission: 11/04/23
Date of Discharge: 11/06/23
-
Pending Results: No
Hospital Course
Primary diagnoses:
Right sided intracranial mass
Secondary diagnoses:
Chronic heart failure with reduced ejection fraction
Hyperkalemia
Left lower extremity weakness which is attributed to h/o of diabetic amyotrophy
Hyponatremia
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
Hyperlipidemia
Likely Chronic Kidney Disease 3b
Consultants:
Neurosurgery
Cardiology
Neurology
Oncology
Nephrology
Imaging:
CT brain: In the right hemisphere, there are several focal areas of subtle increased density with associated mass effect and subfalcine shift from right to left. These likely represent neoplasia. Main differential considerations of metastatic
disease, multicentric glioblastoma multiforme, and lymphoma.�
MRI brain:
1. � Large 10 cm infiltrative poorly circumscribed intra-axial mass in the right basal ganglia, right thalamus, right insular cortex, right temporal lobe, right parietal lobe, and right midbrain causing mass effect with effacement of the right
lateral ventricle and 5 mm right to left midline shift. Diagnostic possibilities are (1) MALIGNANT GLIOBLASTOMA MULTIFORM, (2) less likely primary CHEMISTRY INSTRUCTOR lymphoma, or (3) less likely metastatic disease.
2. � No MRI evidence for obstructive hydrocephalus or brain herniation.
3. � No MRI evidence for acute intracranial hemorrhage.
CT C/A/P w/IV:
1. Few tiny bilateral pulmonary nodules, which are nonspecific but are not considered highly suspicious for pulmonary metastases.
2. No other CT evidence for malignancy or metastatic disease in the chest, abdomen, or pelvis.
Echo: Normal left ventricular chamber size. Mild concentric left ventricular�hypertrophy. Moderately reduced left ventricular systolic function. Global�hypokinesis. Left ventricular ejection fraction is 35-40%.�No significant valvular
disease.�Compared to the previous echo from Jun 2023, which was reviewed,� EF was 30-35%�at that time.�
Hospital course: 68-year-old male who presented with chief complaints of ambulatory dysfunction resulting in a fall as well as left sided weakness and facial droop as outlined in H&P done on admission. Imaging above and notable for large
right-sided intracranial mass. Patient was placed on Keppra and Decadron. EEG was without seizure activity. The patient was seen/evaluated by neurosurgery, neurology, and oncology. It was decided that the patient required transfer to [facility] for biopsy of his intracranial mass.
Discharge Plan
-
Patient Disposition: Acute Care Hospital
Referrals:
Lizbeth Lucio MD [Family Provider] -
Prescriptions:
No Action
insulin glargine [Lantus U-100 Insulin] 100 UNITS/1 ML solution
24 units SQ BID
rosuvastatin 5 MG tablet
5 mg PO QPM
acetaminophen [Tylenol] 325 mg Tablet
650 mg PO Q6HPRN PRN (Reason: mild pain)
carvedilol [Coreg] 6.25 mg Tablet
6.25 mg PO BID
aspirin 325 mg Tablet
325 mg PO DAILY
hydralazine 25 mg Tablet
25 mg PO BID
flaxseed oil 1,000 mg Capsule
1,000 mg PO DAILY
insulin lispro [Humalog U-100 Insulin] 100 unit/mL Solution
24 unit SC AC
Ozempic 2 mg/dose (8 mg/3 mL) Pen Injector
2 mg SC MURRAY@1700
Discharge Orders:
Discharge Patient (As Directed); Ordered 11/06/23
Ordered By: Tenisha Caraballo
Discharge Date and Time
Discharge Date/Time: 11/06/23 18:45
== END 2023-11-06 18:45 | disposition short-term general hospital (02) | DRG 54 ==
LOC: 3 WEST ACU 19:50
PROVIDERS: Internal Medicine; ADMITTING PHYSICIAN Internal Medicine; ATTENDING PHYSICIAN Internal Medicine; CONSULT PHYSICIAN Internal Medicine Hematology & Oncology; CONSULT PHYSICIAN Neurological Surgery; CONSULT PHYSICIAN Student in an Organized Health Care Education/Training Program; EMERGENCY PHYSICIAN Emergency Medicine; FAMILY PHYSICIAN Family Medicine; OTHER PHYSICIAN Internal Medicine; OTHER PHYSICIAN Nuclear Medicine Nuclear Cardiology
DX: C71.9 Malignant neoplasm of brain, unspecified (principal); G93.6 Cerebral edema; I13.0 Hypertensive heart and chronic kidney disease with heart failure and stage 1 through stage 4 chronic kidney disease, or unspecified chronic kidney disease; E87.1 Hypo-osmolality and hyponatremia; C85.99 Non-Hodgkin lymphoma, unspecified, extranodal and solid organ sites; N17.9 Acute kidney failure, unspecified; G40.109 Localization-related (focal) (partial) symptomatic epilepsy and epileptic syndromes with simple partial seizures, not intractable, without status epilepticus; I50.20 Unspecified systolic (congestive) heart failure; I50.22 Chronic systolic (congestive) heart failure; I42.8 Other cardiomyopathies; R26.2 Difficulty in walking, not elsewhere classified; R29.810 Facial weakness; E87.5 Hyperkalemia; Z79.82 Long term (current) use of aspirin; E78.00 Pure hypercholesterolemia, unspecified; N18.30 Chronic kidney disease, stage 3 unspecified; E11.649 Type 2 diabetes mellitus with hypoglycemia without coma; Z79.4 Long term (current) use of insulin; E11.44 Type 2 diabetes mellitus with diabetic amyotrophy; E11.22 Type 2 diabetes mellitus with diabetic chronic kidney disease; N18.32 Chronic kidney disease, stage 3b
CPT/HCPCS: 70450; 70553; 71260; 74177; 80048; 80053; 81003; 82962; 83036; 83735; 85025; 85610; 85730; 92610; 93005; 93306; 95812; 96374; 96375; 97163; 97167; 99291; A9575; Q9967

== ENCOUNTER → 2024-04-09 13:31 | Outpatient (REF) | payer MEDICARE, OTHER, SELFPAY ==
[2024-04-09 12:05] LABS: % Basophils 0.1 % (0-2); % Eosinophils 0.4 % (0-6); % Immature Granulocytes 0.3 % (0-0.5); % Lymphocytes 12.1 % (20.5-51.1); % Monocytes 4.3 % (1.7-9.3); % Neutrophils 82.8 % (42.2-75.2); Absolute Lymphocytes 1.2 10^3/uL (1.2-3.4); Absolute Monocytes 0.4 10^3/uL (0.1-0.6); Absolute Neutrophils 7.9 10^3/uL (1.4-6.5); Hematocrit 37.4 % (39.0-52.0); Hemoglobin 12.9 g/dL (13.0-18.0); Mean Corp Hgb Conc. 34.5 g/dL (33.0-37.0); Mean Corpuscular Hgb 30.8 pg (27.0-31.0); Mean Corpuscular Volume 89.3 fL (80.0-94.0); Mean Platelet Volume 8.8 fL (7.4-10.4); Platelet Count 155 10^3/uL (130-400); Red Blood Cell Count 4.19 10^6/uL (4.70-6.10); Red Cell Dist. Width 13.3 % (11.5-14.5); White Blood Cell Count 9.5 10^3/uL (4.8-10.8)
[2024-04-09 13:56] LABS: ALT (SGPT) 45 U/L (0-50); AST (SGOT) 31 U/L (17-59); Albumin 3.9 g/dl (3.5-5.0); Alkaline Phosphatase 45 U/L (38-126); Blood Urea Nitrogen 29 mg/dl (9-20); Calcium 8.7 mg/dl (8.4-10.2); Carbon Dioxide 22 mmol/L (22-30); Chloride 103 mmol/L (98-107); Glucose 219 mg/dl (70-99); Potassium 3.9 mmol/L (3.5-5.1); Sodium 134 mmol/L (135-145); Total Bilirubin 0.8 mg/dl (0.2-1.3); Total Protein 6.7 g/dl (6.3-8.2); eGFR 47.23
[2024-04-09 16:06] LABS: Urine Protein < 5 mg/dl
== END ==
LOC: OIDL 13:31
PROVIDERS: ATTENDING PHYSICIAN Internal Medicine Hematology & Oncology
DX: C71.1 Malignant neoplasm of frontal lobe (principal)
CPT/HCPCS: 80053; 82570; 84156; 85025

== ENCOUNTER → 2024-12-23 08:47 | Outpatient (REF) | payer MEDICARE, OTHER, SELFPAY ==
[2024-12-23 09:07] LABS: % Basophils 0.2 % (0-2); % Eosinophils 0.2 % (0-6); % Immature Granulocytes 1.3 % (0-0.5); % Lymphocytes 15.4 % (20.5-51.1); % Monocytes 6.2 % (1.7-9.3); % Neutrophils 76.7 % (42.2-75.2); Absolute Immature Granulocytes 0.1 10^3/uL (0-0.05); Absolute Monocytes 0.4 10^3/uL (0.1-0.6); Absolute Neutrophils 4.8 10^3/uL (1.4-6.5); Hemoglobin 11.9 g/dL (13.0-18.0); Mean Corpuscular Hgb 33.1 pg (27.0-31.0); Mean Corpuscular Volume 97.2 fL (80.0-94.0); Mean Platelet Volume 8.7 fL (7.4-10.4); Platelet Count 91 10^3/uL (130-400); Red Cell Dist. Width 14.9 % (11.5-14.5); White Blood Cell Count 6.3 10^3/uL (4.8-10.8)
[2024-12-23 10:10] LABS: Urine Protein 189 mg/dl
[2024-12-23 10:20] LABS: ALT (SGPT) 19 U/L (0-50); AST (SGOT) 14 U/L (17-59); Albumin 3.7 g/dl (3.5-5.0); Alkaline Phosphatase 42 U/L (38-126); Blood Urea Nitrogen 41 mg/dl (9-20); Calcium 8.3 mg/dl (8.4-10.2); Carbon Dioxide 23 mmol/L (22-30); Chloride 106 mmol/L (98-107); Glucose 178 mg/dl (70-99); Potassium 4.7 mmol/L (3.5-5.1); Sodium 137 mmol/L (135-145); Total Bilirubin 0.9 mg/dl (0.2-1.3); Total Protein 6.1 g/dl (6.3-8.2); eGFR 50.71
== END ==
LOC: OIDL 08:47
PROVIDERS: ATTENDING PHYSICIAN Internal Medicine Hematology & Oncology; FAMILY PHYSICIAN Family Medicine
DX: C71.1 Malignant neoplasm of frontal lobe (principal); C72.9 Malignant neoplasm of central nervous system, unspecified
CPT/HCPCS: 36415; 80053; 82570; 84156; 85025

== ENCOUNTER 2025-02-26 02:19 | Inpatient (IN) | payer MEDICARE, OTHER, SELFPAY ==
[2025-02-25 19:00] VITALS: BP 153/83
[2025-02-25 20:45] VITALS: BP 155/81
[2025-02-25 20:48] VITALS: BMI 33.8
[2025-02-25 21:00] VITALS: BP 155/77
--- NOTE | 2025-02-25 21:23 | ED.GENMED ---
History of Present Illness
General
Chief Complaint: Visual Problem
Source: patient
Exam Limitations: none
Time Seen by Provider: 02/25/25 20:42
Nursing documentation reviewed up to this point in time: agreed with
History of Present Illness
History of Present Illness:
Patient is a 69-year-old male with past medical history of glioblastoma, shunt chronic heart failure diabetes, chronic kidney disease presents to the ER for evaluation. Last night patient was eating a cookie around 9�10 PM and lost complete vision
from his left eye. He is not even able to see the light. He is followed at [place] for glioblastoma ( DR Frost/DR López)and [place] here. Patient being treated with Avastin and Optune . Has previously had radiation
Patient denies any headache nausea vomiting.
Patient's last MRI( brought copy) report from February 05 reads stable position of right frontal approach ventriculostomy catheter interval development of loculated bilateral subdural collections measuring approximately 10 mm on the right and
approximate 9 mm on the left with underlying mass effect. No midline shift. Confluent T2/FLAIR signal abnormality in the right hemisphere/right deep harris nuclei as well as in the left periventricular white matter not significantly changed likely
reflects a combination of infiltrative neoplasm and treatment effects. Decreased heterogeneous enhancement in the right periatrial region and right the lateral mass with improved advanced imaging metrics likely secondary to initiation of Avastin
Review of Systems
Review of Systems
Allergies reviewed?: Yes
Other source history: family
All Other Systems: ROS reviewed and negative except as documented in HPI and ROS
Phy Exam
General Physical Exam
General Presentation: no apparent distress
General age: appears stated age
General Skin: warm and dry
General Habitus: normal
General Mental: alert
General Hydration: appears well hydrated
ENT Exam
ENT Exam: EOMI and neck supple
Eye Exam
Eye Exam: PERRL, EOMI and other ( unable to see light from left eye (previous right eye field deficit from prior stroke )
Neurological Exam
Neurological Exam: alert and oriented x3
Musculoskeletal Exam
Musculoskeletal Exam: full ROM
Skin Exam
Skin Exam: normal color and warm/dry
Course
Orders/Labs/Results
Orders:
Orders
02/25/25 21:45
IV Insert/Care/Rem.- Treatment PRN
02/25/25 21:58
CT Head W/o Iv Contrast Urgent
Comment:
Reason For Exam: right eye visual loss
02/25/25 22:26
Complete Blood Count/With Diff Urgent
Comprehensive Metabolic Panel Urgent
02/25/25 23:18
Dexamethasone Sod Phosphate [Decadron] 10 mg IV NOW STA
02/25/25 23:27
HydrALAZINE [Apresoline] 10 mg IV NOW STA
Abnormal Lab Results
02/25/25
22:26
RBC 3.73 L 10^6/uL
(4.70-6.10)
Hgb 12.5 L g/dL
(13.0-18.0)
Hct 36.5 L %
(39.0-52.0)
MCV 97.9 H fL
(80.0-94.0)
MCH 33.5 H pg
(27.0-31.0)
Plt Count 64 L 10^3/uL
(130-400)
Absolute Lymphs (auto) 1.0 L 10^3/uL
(1.2-3.4)
Immature Gran % 0.6 H %
(0-0.5)
Lymphocytes % 19.3 L %
(20.5-51.1)
Chloride 108 H mmol/L
(98-107)
BUN 40 H mg/dl
(9-20)
Creatinine 1.7 H mg/dL
(0.7-1.3)
Glucose 148 H mg/dl
(70-99)
Calcium 8.2 L mg/dl
(8.4-10.2)
AST 13 L U/L
(17-59)
02/25/25 22:26
02/25/25 22:26
Vital Signs
Initial and Last Documented VS:
Initial Vital Signs
Temp Pulse Resp BP Pulse Ox
98.2 F 70 16 153/83 98
02/25/25 19:00 02/25/25 19:00 02/25/25 19:00 02/25/25 19:00 02/25/25 19:00
Last Documented Vital Signs
Temp Pulse Resp BP Pulse Ox
98.2 F 70 16 163/97 97
02/25/25 19:00 02/25/25 19:00 02/25/25 19:00 02/25/25 23:00 02/25/25 23:00
Information And Referral Director consulted with Physician
Information And Referral Director consulted with physician?: Yes (noh)
MDM/Problems Addressed
MDM/Problems Addressed:
Patient is a 69-year-old male with known glioblastoma managed at [place] as well as [facility] at [facility]. Patient was sent in by Dr. Kilgore for evaluation/MRI. Patient had sudden visual loss from left eye last night around 9 PM. CAT scan on
shows ill-defined right basal ganglia ill-defined probable infiltrative neoplasm with intralesional hemorrhage and vasogenic edema. Case d/ c with DR Myers.REviewed with DR Kilgore who does suggest that patient be transferred to [place] where his
neurosurgeon is located and placed a shunt. As per Dr. Kilgore there was a previous question of drain function on his last scan with some fluid buildup and neurosurgery at [place] has plan to watch she is concerned the bleeding is related to this. In
addition he is also on a Avastin which can increase bleeding risk.
will give a dose of IV steroids 10 mg of Decadron ordered, will also maintain good blood pressure control. Blood pressure 163/97 we will order 10 mg of hydralazine heart rate 63.
2833: I spoke with DR Hunt neurosurgery at [place].
Patient is excepted however no beds at this time likely a bed tomorrow. Patient will require admission until a bed becomes available.
Labs reviewed creatinine elevated 1.7 not new, platelets low at 64,000 previously in December here were 91,000, white count normal afebrile not hypoxic
*Radiology
Radiology exam reviewed: radiology read reviewed
*Pulse Oximetry
SaO2: 99
Oxygen Mode of Delivery: Room air
Patient hypoxic: no
*Critical Care Note
Total Time (30-74mins, 75-104mins- exclusive of procedures): Not Applicable
Patient Management
Discussion with other providers: Internet Assessor (Dr. Kilgore oncology ([facility]) [place] Dr. Hunt (neurosurg) )
ED Attending Note
-
Portions of this chart may have been created with voice recognition software.� Occasional wrong word or��sound alike� substitutions may have occurred due to the inherent limitations of voice recognition software.
Discharge Plan
Departure
Patient Disposition: Admit
Date of Disposition: 02/25/25
Time of Disposition: 23:52
Admit to: Med/Surg
Presentation/result/management discussed w/ accepting MD/DO: Hospitalist
Patient with high blood pressure during this ER visit?: Yes
Covid-19: Not Applicable
Discharge Problem:
Brain mass, brain mass with hemorrhage
Prescriptions:
No Action
insulin glargine [Lantus U-100 Insulin] 100 UNITS/1 ML solution
24 units SQ BID
rosuvastatin 5 MG tablet
5 mg PO QPM
acetaminophen [Tylenol] 325 mg Tablet
650 mg PO Q6HPRN PRN (Reason: mild pain)
carvedilol [Coreg] 6.25 mg Tablet
6.25 mg PO BID
aspirin 325 mg Tablet
325 mg PO DAILY
hydralazine 25 mg Tablet
25 mg PO BID
flaxseed oil 1,000 mg Capsule
1,000 mg PO DAILY
insulin lispro [Humalog U-100 Insulin] 100 unit/mL Solution
24 unit SC AC
Ozempic 2 mg/dose (8 mg/3 mL) Pen Injector
2 mg SC MURRAY@1700
Referrals:
Lizbeth Lucio MD [Family Provider, Family Practice]
Interventions
Interventions:
*Risk Screen - Suicide Last Done: 02/25/25 19:00
*General Assessment Last Done: 02/25/25 20:48
*Neglect/Abuse Screening Last Done: 02/25/25 19:00
*ED- Fall Risk Assessment Last Done: 02/25/25 20:48
ED- Neurological Assessment Last Done: 02/25/25 21:05
ED-EENT Assessment Last Done: 02/25/25 21:05
Discharge Date and Time
Print Language: MALAWIAN
[2025-02-25 22:00] VITALS: BP 155/75
[2025-02-25 22:49] LABS: % Eosinophils 0.4 % (0-6); % Immature Granulocytes 0.6 % (0-0.5); % Lymphocytes 19.3 % (20.5-51.1); % Monocytes 5.6 % (1.7-9.3); % Neutrophils 74.1 % (42.2-75.2); Absolute Monocytes 0.3 10^3/uL (0.1-0.6); Hematocrit 36.5 % (39.0-52.0); Hemoglobin 12.5 g/dL (13.0-18.0); Mean Corp Hgb Conc. 34.2 g/dL (33.0-37.0); Mean Corpuscular Hgb 33.5 pg (27.0-31.0); Mean Corpuscular Volume 97.9 fL (80.0-94.0); Nucleated Red Blood Cells % 0 % (-); Red Blood Cell Count 3.73 10^6/uL (4.70-6.10); Red Cell Dist. Width 13.7 % (11.5-14.5); White Blood Cell Count 5.3 10^3/uL (4.8-10.8)
[2025-02-25 22:54] LABS: ALT (SGPT) 11 U/L (0-50); AST (SGOT) 13 U/L (17-59); Albumin 3.6 g/dl (3.5-5.0); Alkaline Phosphatase 39 U/L (38-126); Blood Urea Nitrogen 40 mg/dl (9-20); Calcium 8.2 mg/dl (8.4-10.2); Carbon Dioxide 25 mmol/L (22-30); Chloride 108 mmol/L (98-107); Estimated Creatinine Clearance 47 ml/min; Glucose 148 mg/dl (70-99); Potassium 4.2 mmol/L (3.5-5.1); Sodium 137 mmol/L (135-145); Total Bilirubin 0.8 mg/dl (0.2-1.3); Total Protein 6.3 g/dl (6.3-8.2); eGFR 43.64
[2025-02-25 23:00] VITALS: BP 163/97
[2025-02-25 23:10] LABS: Platelet Count 64 10^3/uL (130-400)
[2025-02-25 23:11] LABS: Mean Platelet Volume 9.2 fL (7.4-10.4)
[2025-02-26] VITALS (55 sets, daily range): BP systolic 131–200; BP diastolic 68–97; PULSE 73–75; O2SAT 96–98; BMI 33.0
[2025-02-26] MEDS: DECADRON 10 MG IV (00:08)
[2025-02-26] MEDS: APRESOLINE 10 MG IV ×2 (00:08→05:38)
--- NOTE | 2025-02-26 00:50 | HPS.HSE ---
Family Physician
-
Family Physician: Lizbeth Lucio
Chief Complaint
-
Vision loss
History of Present Illness
Patient is a 69-year-old with a history of glioblastoma status post surgical management by neurosurgery at [facility], status post shunt, chronic heart failure, diabetes, CKD who presents from home with sudden onset loss of complete vision from his left
eye.
He is not even able to see any sensation of light. He is being followed at [facility] for glioblastoma and is currently on Avastin and Optune. He is status post 2 radiation.
He denies headache nausea or vomiting.
Patient has a recent MRI from February 05 that shows stable position of the right frontal approach ventriculostomy with catheter interval development of loculated bilateral subdural collections measuring approximately 10 mm on the right and 9 mm on the
left with underlying mass effect. No midline shift. Confluent T2/FLAIR signal abnormality in the right hemisphere/right deep harris nuclei as well as in the left periventricular white matter not significantly changed likely reflects a combination of
infiltrative neoplasm and treatment effects. Decreased heterogeneous enhancement in the right periatrial region and right the lateral mass with improved advanced imaging metrics likely secondary to initiation of Avastin.
Here he was afebrile, blood pressure 147/88 with a pulse of 67 and satting 98% on room air.
CBC notable for a platelet count of 64 but otherwise unremarkable. Electrolytes were normal. BUN/creatinine were stable compared to prior at 40 and 1.7 with a normal glucose.
CT head shows: Ill-defined right basal ganglia ill-defined probable infiltrative neoplasm with intralesional hemorrhage and adjacent vasogenic edema, likely related to malignant glioblastoma multiforme and treatment change. No midline shift or
herniation. Additional punctate focus of parenchymal hemorrhage in the superior right parietal lobe.
Small bilateral subdural collections may reflect hygromas or subdural hematomas.
Patient accepted at [facility] by Dr. Hunt (neurosurg) for transfer but is awaiting a bed.
He is otherwise neurologically intact. Started Decadron and hydralazine in the ED.
Oncology commended that there is concern for question of brain function based on his last imaging with fluid buildup possibly related to this bleeding. Also at high risk for bleeding given Avastin treatment.
Recommending admission here until he can be transferred.
Medical History
Past Medical History
Past Medical History: Reports Cancer (Glioblastoma status postsurgery, shunt placement), CHF, HTN, Hypercholesterolemia and IDDM
Past Surgical History: Reports Brain
Social History
Tobacco: Non-smoker
Alcohol: None
Drug: None
Personal:
Living: With Family
Employment: Employed
Family History
Family History: Cancer (Brother with bone cancer)
Allergies / Home Medications
Allergies reflects when Allergies were last updated in [facility].
Home Medications with original date entered in [facility]
Allergy/Medication List:
Allergies
Allergy/AdvReac Type Severity Reaction Status Date / Time
Shellfish *RETIRED-05/21/12 Allergy Shortness Verified 11/04/23 17:16
[Shellfish] of Breath
Home Medications
insulin glargine 100 unit/mL subcutaneous solution (Lantus U-100 Insulin) 24 units SQ BID 12/25/11
rosuvastatin 5 mg tablet 5 mg PO QPM 12/25/11
acetaminophen 325 mg tablet (Tylenol) 650 mg PO Q6HPRN PRN mild pain 11/04/23
aspirin 325 mg tablet 325 mg PO DAILY 11/04/23
carvedilol 6.25 mg tablet (Coreg) 6.25 mg PO BID 11/04/23
flaxseed oil 1,000 mg capsule 1,000 mg PO DAILY 11/04/23
hydralazine 25 mg tablet 25 mg PO BID 11/04/23
insulin lispro 100 unit/mL subcutaneous solution (Humalog U-100 Insulin) 24 unit SC AC 11/04/23
semaglutide 2 mg/dose (8 mg/3 mL) subcutaneous pen injector (Ozempic) 2 mg SC MURRAY@1700 11/04/23
Review of Systems
-
Constitutional: Reports No Symptoms
EENT: Reports No Symptoms
Respiratory: Reports No Symptoms
Cardiac: Reports No Symptoms
Abdomen/GI: Reports No Symptoms
: Reports No Symptoms
Musculoskeletal: Reports No Symptoms
Skin: Reports No Symptoms
Neurological: Reports Other (Left eye vision loss)
Endocrine: Reports No Symptoms
Hematologic/Lymphatic: Reports No Symptoms
Psych: Reports No Symptoms
Physical Exam
Vital Signs
Vital Signs
Temp Pulse Resp BP Pulse Ox
98.2 F 67 16 147/88 97
02/25/25 19:00 02/26/25 00:08 02/25/25 19:00 02/26/25 00:08 02/25/25 23:00
Physical Exam
General: Well Developed, Well Nourished and No Apparent Distress
HEENT: NormoCephalic, Moist mucous membranes, Atraumatic and Other (Dilated left eye, constriction of the left eye pupil with contralateral light stimulation); No PERRLA
Respiratory: Clear
Cardiac: S1/S2 and Regular Rhythm; No Murmur or Rub
GI: Soft, Non Tender, Non Distended and Normal Bowel Sounds; No Organomegaly
Rectal: Deferred by Provider
Musculoskeletal: No Clubbing, No Cyanosis and No Edema
Skin: No Rash
Neuro: Nonfocal/grossly intact
Laboratory Results
-
02/25/25 22:26
02/25/25 22:26
Laboratory Results
Total Bilirubin 0.8 mg/dl (0.2-1.3) 02/25/25 22:26
AST 13 U/L (17-59) L 02/25/25 22:26
ALT 11 U/L (0-50) 02/25/25 22:26
Alkaline Phosphatase 39 U/L (38-126) 02/25/25 22:26
Data Reviewed
-
CT Scan: Report Reviewed by me
Lab Data: Labs Reviewed by me
Old Records: Reviewed
Impression/Plan
-
IMPRESSION:
69-year-old with history of glioblastoma s/p resection, shunt placement, currently on Avastin presenting to the emergency department with acute onset of left eye monocular vision loss this evening a few hours prior to arrival in the emergency
department. He denied any headache. There was no nausea or vomiting. Denies any other focal logical deficits. He denies pain in that eye. Exam shows loss of light sensitivity in that eye. Extraocular movements are otherwise intact. CT scan of
the brain revealed progression of disease with right basal ganglia infiltrative neoplasm and intralesional hemorrhage and adjacent vasogenic edema likely related to malignant glioblastoma and treatment change. No midline shift, or herniation.
Additional punctate focus of parenchymal hemorrhage in the superior right parietal lobe. Per discussion with oncology, this may be related to interval development of loculated bilateral subdural collections measuring approximately 10 mm on the
right and approximate 9 mm on the left with underlying mass effect vs avastin.
PLAN:
GBM iwth intralesional hemorrhage and vasogenic edema.
- Admit to telemetry
- Patient is accepted to [facility] neurosurgery on Med/Surg neuro
-n.p.o., swallow eval
- Neurochecks every 4 hours
- Keep SBP less than 140-160
- Holding aspirin for now, DVT prophylaxis with SCDs
- Started dexamethasone for vasogenic edema, 10 mg IV now then 4 mg IV every 6
- Patient is not on any seizure prophylaxis, will monitor for now
- While patient is awaiting a bed here, unk recommends consult to [place] neurosurgery in the morning
- Follow-up CT, MRI in a.m.
Hypertension
- If passed swallow, continue patient's carvedilol and hydralazine
- Continue with rosuvastatin
Diabetes
� When tolerating p.o., continue Lantus 30 units every morning if eating (patient takes 42 units every morning at home)
� Continue aspart 15 units 3 times daily AC with moderate sliding scale (patient on 20 3 times daily AC)
DVT prophylaxis�SCDs
CODE STATUS�DNR
[2025-02-26] MEDS: REFRESH EYE DROPS (PF) 1 DROPS OPHTH (02:33)
[2025-02-26] MEDS: TRANDATE 10 MG IV ×2 (03:20→15:16)
--- NOTE | 2025-02-26 03:56 | PTCARENOTE ---
New admit. aao2-3, forgetful. NIH 7, no vision L eye, pupils 3 L sluggish, slight L sided weakness with ataxia in all limbs except R leg, aphasic, no loss of sensation, got age & month wrong, appropriate behavior. NSR, remains RA. HOB 30 degrees.
BP's running high, PRN meds given, will monitor & recheck. Pt denies pain. BA on. will monitor.
[2025-02-26] MEDS: DECADRON 4 MG IV ×4 (05:07→23:33)
[2025-02-26 05:11] LABS: Hematocrit 34.2 % (39.0-52.0); Hemoglobin 11.9 g/dL (13.0-18.0); Mean Corp Hgb Conc. 34.8 g/dL (33.0-37.0); Mean Corpuscular Hgb 33.6 pg (27.0-31.0); Mean Corpuscular Volume 96.6 fL (80.0-94.0); Mean Platelet Volume 9.6 fL (7.4-10.4); Platelet Count 64 10^3/uL (130-400); Red Blood Cell Count 3.54 10^6/uL (4.70-6.10); Red Cell Dist. Width 13.6 % (11.5-14.5); White Blood Cell Count 5.8 10^3/uL (4.8-10.8)
[2025-02-26 05:17] LABS: INR 0.91; PT 12.8 Sec (11.4-14.6)
[2025-02-26 05:18] LABS: APTT 27.3 Sec (23.4-35.0)
[2025-02-26 05:36] LABS: HDL Cholesterol 47 mg/dl; LDL Cholesterol, Calculated 123 mg/dl; Total Cholesterol 216 mg/dl (50-199); Triglyceride 232 mg/dl (10-149); Very Low Density Lipoprotein 46 mg/dl (0-30)
--- NOTE | 2025-02-26 06:49 | CON.ONC ---
Consultation
-
Date Consultation Requested: 02/26/25
Date Consultation Performed: 02/26/25
Requesting Provider: Deann
Performing Provider: Nina
Reason for Consultation: GBM
Impression
Impression
glioblastoma multiforme s
acute onset of left eye monocular vision loss
DNR
Plan
Plan
CT scan of the brain suggests possible progression of disease vs. underlying mass effect vs Avastin (bevacizumab) associated hemorrhage.
Dexamethasone, 10 mg IV in ER then 4 mg IV Q 6
F/U repeat CT and Brain MRI
For Transfer to [facility] when bed available.
Hold ASA (for potential bleeding) and oral chemotherapy Temodar (temozolomide) pending workup
Patient History
History of Present Illness
CC: Acute L Vision loss
HPI: 69-year-old man with glioblastoma multiforme followed by Dr. Rdz, neurosurgery at [facility] and [place] (Dr. Kilgore on Temodar days 1-5 Q 28 + bevacizumab Q 2 weeks, last Tx 02/18) , status post intraventricular shunt, chronic heart failure,
diabetes, CKD who presents from home with sudden onset loss of complete vision from his left eye. He is also using Optune past 2 months (Optune is a manager medical that utilizes Tumor Treating Hansen - a wearable, portable device that generates
electric hansen to disrupt the division of cancer cells.) He denies headache nausea or vomiting.
Patient has a recent MRI from February 05 that shows stable position of the right frontal approach ventriculostomy with catheter interval development of loculated bilateral subdural collections measuring approximately 10 mm on the right and 9 mm on the
left with underlying mass effect. No midline shift. Confluent T2/FLAIR signal abnormality in the right hemisphere/right deep harris nuclei as well as in the left periventricular white matter not significantly changed likely reflects a combination of
infiltrative neoplasm and treatment effects. Decreased heterogeneous enhancement in the right periatrial region and right the lateral mass with improved advanced imaging metrics likely secondary to initiation of Avastin.
CT head here DH shows: Ill-defined right basal ganglia ill-defined probable infiltrative neoplasm with intralesional hemorrhage and adjacent vasogenic edema, likely related to malignant glioblastoma multiforme and treatment change. No midline shift
or herniation. Additional punctate focus of parenchymal hemorrhage in the superior right parietal lobe. Small bilateral subdural collections may reflect hygromas or subdural hematomas. MRI ordered.
Started Decadron and hydralazine in the ED. Patient accepted at [facility] by Dr. Hunt (neurosurg) for transfer but is awaiting a bed.
Past-Medical/Surgical History
PMH:
Glioblastoma status postsurgery, shunt placement), CHF, HTN, Hypercholesterolemia and IDDM
PSH: Vasectomy (1988). Brain Biopsy (11/09/23)
SH:
Tobacco: Non-smoker
Alcohol: None
Drug: None
Personal:
Living: With Family
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
FH: Cancer (Brother with bone cancer)
Patient Medication
�Medication �Instructions �Recorded �Confirmed �Last Taken �Type
insulin glargine 100 unit/mL 24 units SQ BID Diabetes 12/25/11 11/04/23 11/04/23 History
subcutaneous solution (Lantus
U-100 Insulin)
rosuvastatin 5 mg tablet 5 mg PO QPM High Cholesterol 12/25/11 11/04/23 11/03/23 History
acetaminophen 325 mg tablet 650 mg PO Q6HPRN PRN mild pain 11/04/23 11/04/23 11/01/23 History
(Tylenol)
aspirin 325 mg tablet 325 mg PO DAILY Blood Clot 11/04/23 11/04/23 11/04/23 History
Prevention/Tx
carvedilol 6.25 mg tablet (Coreg) 6.25 mg PO BID Heart 11/04/23 11/04/23 11/04/23 History
Disease/Condition
flaxseed oil 1,000 mg capsule 1,000 mg PO DAILY Supplement 11/04/23 11/04/23 11/04/23 History
hydralazine 25 mg tablet 25 mg PO BID Blood Pressure 11/04/23 11/04/23 11/04/23 History
insulin lispro 100 unit/mL 24 unit SC AC Diabetes 11/04/23 11/04/23 11/04/23 History
subcutaneous solution (Humalog
U-100 Insulin)
semaglutide 2 mg/dose (8 mg/3 mL) 2 mg SC MURRAY@1700 Diabetes 11/04/23 11/04/23 10/28/23 History
subcutaneous pen injector (Ozempic)
Active Medications
Generic Name Dose Route Start Last Admin
Trade Name Freq PRN Reason Stop Dose Admin
Acetaminophen 650 mg 02/26/25 02:55
Acetaminophen 325 Mg Tablet PO 03/26/25 02:54
Q4HPRN PRN
temp greater than 38C (100.4F)
Acetaminophen 650 mg 02/26/25 02:55
Acetaminophen 650 Mg Rectal Suppository RECTAL 03/26/25 02:54
Q4HPRN PRN
temp greater than 38C (100.4F)
Artificial Tears 1 drops 02/26/25 02:55
Artificial Tears Pf (Refresh) 10 Drop Droperette LEFT EYE 03/26/25 02:54
QIDPRN PRN
dry eye or irritation
Carvedilol 6.25 mg 02/26/25 08:00
Carvedilol 6.25 Mg Tablet PO 03/26/25 07:59
BID RICHARD
Dexamethasone Sodium Phosphate 4 mg 02/26/25 06:00 02/26/25 05:07
Dexamethasone 4 Mg/Ml 1 Ml Vial IV 03/26/25 05:59 4 mg
Q6 RICHARD Administration
Dextrose 12.5 grams 02/26/25 04:00
Dextrose 50% (0.5 Grams/Ml) 50 Ml Syringe IV 03/26/25 03:59
[id number] PRN
hypoglycemia
Protocol
Glucagon 1 mg 02/26/25 04:00
Glucagon 1 Mg Vial IM 03/26/25 03:59
PRN PRN
hypoglycemia - no IV access
Protocol
Hydralazine HCl 25 mg 02/26/25 08:00
Hydralazine 25 Mg Tablet PO 03/26/25 07:59
BID RICHARD
Insulin Glargine 30 units/ 0.3 mls @ 0 mls/hr 02/26/25 08:00
Device SC 03/26/25 07:59
DAILY RICHARD
As Directed
Insulin Aspart 15 units 02/26/25 07:30
Insulin Aspart (Novolog) 100 Units/Ml 3 Ml Flexpen SC 03/26/25 07:29
AC RICHARD
Insulin Aspart 0 units 02/26/25 07:30
Insulin Aspart Moderate Resistance 300 Units/3 Ml Pen.Injctr SC 03/26/25 07:29
AC RICHARD
Protocol
Labetalol HCl 10 mg 02/26/25 02:55 02/26/25 03:20
Labetalol Hcl 5 Mg/1 Ml (20 Mg/4 Ml) Injection IV 03/26/25 02:54 10 mg
Q6HPRN PRN Administration
SBP > 160 mmHg
Miconazole Nitrate 0 applic 02/26/25 08:00
Miconazole Powder Bottle TOPICAL 03/26/25 07:59
BID RICHARD
Ondansetron HCl 4 mg 02/26/25 02:55
Ondansetron 4 Mg/2 Ml Vial IV 03/26/25 02:54
Q6HPRN PRN
NAUSEA/VOMITING
Rosuvastatin Calcium 10 mg 02/26/25 08:00
Rosuvastatin (Crestor) 10 Mg Tablet PO 03/26/25 07:59
DAILY RICHARD
Sodium Chloride 0 flush 02/26/25 04:00
Sodium Chloride 0.9% (Flush) Syringe IV 03/26/25 03:59
PER PROTOCOL RICHARD
Physical Exam
-
General: Well Developed, Well Nourished and No Apparent Distress
HEENT: Other (cushingoid facies)
Cardiology: S1 and S2
Pulmonary: Clear
GI: Soft
Extremities: No C/C/E
Psych: Calm and Intact Judgement/Insight
Labs
Lab Results
WBC 5.8 10^3/uL (4.8-10.8) 02/26/25 04:58
RBC 3.54 10^6/uL (4.70-6.10) L 02/26/25 04:58
Hgb 11.9 g/dL (13.0-18.0) L 02/26/25 04:58
Hct 34.2 % (39.0-52.0) L 02/26/25 04:58
MCV 96.6 fL (80.0-94.0) H 02/26/25 04:58
MCH 33.6 pg (27.0-31.0) H 02/26/25 04:58
MCHC 34.8 g/dL (33.0-37.0) 02/26/25 04:58
RDW 13.6 % (11.5-14.5) 02/26/25 04:58
Plt Count 64 10^3/uL (130-400) L 02/26/25 04:58
MPV 9.6 fL (7.4-10.4) 02/26/25 04:58
Abs Immat Gran (auto) 0.0 10^3/uL (0-0.05) 02/25/25 22:
Absolute Neuts (auto) 4.0 10^3/uL (1.4-6.5) 02/25/25 22:
Absolute Lymphs (auto) 1.0 10^3/uL (1.2-3.4) L 02/25/25 22:26
Absolute Monos (auto) 0.3 10^3/uL (0.1-0.6) 02/25/25 22:
Absolute Eos (auto) 0.0 10^3/uL (0-0.7) 02/25/25 22:
Absolute Basos (auto) 0.0 10^3/uL (0-0.2) 02/25/25 22:
Immature Gran % 0.6 % (0-0.5) H 02/25/25 22:
Neutrophils % 74.1 % (42.2-75.2) 02/25/25:
Lymphocytes % 19.3 % (20.5-51.1) L 02/25/25 22:
Monocytes % 5.6 % (1.7-9.3) 02/25/25:
Eosinophils % 0.4 % (0-6) 02/25/25:
Basophils % 0.0 % (0-2) 02/25/25:
Creatinine 1.7 mg/dL (0.7-1.3) H 02/25/25:
Vital Signs
Vital Signs
Temp Pulse Resp BP Pulse Ox
97.9 F 73 13 187/85 94
02/26/25 03:26 02/26/25 05:38 02/26/25 05:10 02/26/25 05:38 02/26/25 05:10
[2025-02-26 07:06] LABS: Glucose - Point of Care 165 mg/dl (70-99)
--- NOTE | 2025-02-26 07:30 | PTCARENOTE ---
1930: Pt's care assumed by this RN. Pt largely unresponsive, eyes open ad yonatan and blinks appropriately. Pt tolerating all tubes, lines and drains. senior label specialist in place. ETT moved to the left side avoiding PI on the inner lip. Respiratory
assisted adjust thing ETT mcmullen due to high tension on lip and columella. Skin tear noted on left cheek. LLE boot removed, foot propped with pillows, foam applied to medial foot and upper thigh. Heels elevated with pillows. Rectal tube needless
connector padded with washcloth to prevent PI. Pt is resting comfortably with no visible signs of pain. Monitors in place.
[2025-02-26] MEDS: NOVOLOG FLEXPEN SC ×2 (08:00→09:00)
--- NOTE | 2025-02-26 08:00 | PTCARENOTE ---
Pt AAox2 some aphasia and some confusing. Pt NPO util seen by speech, DR Gracia TT re BP ordeers given. HOB at 30 at all times . Lost sight in L eye suddenly last night. Neuro checks as documented and NIH as documented.
[2025-02-26] MEDS: APRESOLINE 5 MG IV (08:11)
[2025-02-26] MEDS: NOVOLOG FLEXPEN-MODERATE RESISTANCE 1 UNITS SC (08:25)
[2025-02-26] MEDS: LANTUS 0.3 UNITS SC (08:28)
[2025-02-26] MEDS: DESENEX/MITRAZOL/ZEASORB 1 APPLIC TOPICAL ×2 (09:24→21:45)
[2025-02-26] MEDS: APRESOLINE 25 MG PO ×2 (09:29→21:44)
[2025-02-26] MEDS: TYLENOL 650 MG PO ×2 (09:29→16:52)
[2025-02-26] MEDS: CRESTOR 10 MG PO (09:29)
[2025-02-26] MEDS: COREG 6.25 MG PO ×2 (09:30→21:45)
--- NOTE | 2025-02-26 09:35 | PTCARENOTE ---
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 PT has high BP Apresoline given PRn now po meds
--- NOTE | 2025-02-26 09:37 | W.PN.UPDATE ---
Update Note
Progress Note Update
Admitted this morning by while waiting for transfer to [facility].
He has been accepted in transfer.
Chronic headache which is not different. Present today.
Remains with complete loss of vision in the left eye. No prior issues with the vision. He does have diabetes mellitus and has had some bright lights issue but no spotless. No laser treatments.
Blood pressure usually is usually under control. Denies any confusion.
Await MRI of the brain while awaiting transfer to [facility].
Sudden painless loss of vision unclear etiology. Unclear if this is brain pathology. I do not know if acute ischemic syndrome from thrombosis is painless but expect some discomfort in the eye. Doubt complete retinal detachment as this has been
sudden without any prodromal symptoms. Will run it by ophthalmology on-call but in meantime continue with IV steroids.
Hypertensive emergency-with CT changes as above unclear if this is a secondary response or primary issue. Will aim to keep blood pressure systolic less than 160. He is now cleared for diet and will start his oral medication. Continue with as
needed labetalol.
--- NOTE | 2025-02-26 09:45 | PTCARENOTE ---
Pt for reg diiet.
--- NOTE | 2025-02-26 10:44 | PTOTSP ---
KOSHER BUTCHER Evaluation
Oral/pharyngeal swallowing suspected to be within functional limits for clinical bedside swallowing evaluation. Risk factors for dysphagia include known glioblastoma with current intralesional hemorrhage and vasogenic edema and dependence for
feeding at this time.
Quick Aphasia Battery form 1 score = QAB overall 9.65 (WNL). Concern for difficulty with processing of auditory speech noted (i.e., frequent need for repetition). Reading impaired with frequent omission of left side of words/pictures.
Recommend:
1. IDDSI 7 Regular, Thin
2. Medications: as best tolerated
3. Strategies: assistance to cut foods and feed due to ataxia, upright to 90 degrees, slow rate
4. Oral care 3x daily
5. Brief dysphagia f/u x1 at the acute care level
6. Cognitive linguistic evaluation as able/appropriate.
[2025-02-26 12:41] LABS: Glucose - Point of Care 257 mg/dl (70-99)
[2025-02-26] MEDS: NOVOLOG FLEXPEN-MODERATE RESISTANCE 5 UNITS SC (12:55)
--- NOTE | 2025-02-26 13:29 | PTCARENOTE ---
[facility] called for update , Pt to [facility] in stretcher AAOx2
[2025-02-26 17:33] LABS: Glucose - Point of Care 203 mg/dl (70-99)
[2025-02-26] MEDS: NOVOLOG FLEXPEN-MODERATE RESISTANCE 3 UNITS SC (17:34)
--- NOTE | 2025-02-26 17:47 | PTCARENOTE ---
Pt bp 183/84 Linnea TT . Pt for Nicardipine GTT Tx to ICU report to Kan Rn . at bedside
[2025-02-26] MEDS: CARDENE 200 IV (18:06)
[2025-02-26] MEDS: NOVOLOG FLEXPEN 15 UNITS SC (18:24)
--- NOTE | 2025-02-26 18:29 | PTCARENOTE ---
Pt received as upgrade from IMU. Cardene gtt initiated with goal SBP 140 - 160s. Cardene gtt titrated to 7.5 mg/hr to maintain goal. NIHSS 8 for inability to answer questions, mild aphasia, left hemianopia, left limb ataxia and left leg drift.
at bedside.
[2025-02-26 21:55] LABS: Glucose - Point of Care 209 mg/dl (70-99)
[2025-02-26] MEDS: NOVOLOG FLEXPEN 3 UNITS SC (23:32)
[2025-02-27] VITALS (50 sets, daily range): BP systolic 132–183; BP diastolic 67–123; BMI 34.1
[2025-02-27] MEDS: APRESOLINE 10 MG IV (02:42)
--- NOTE | 2025-02-27 03:49 | PTCARENOTE ---
1900: Pt care assumed by this RN. first NIH preformed with previous shift for establishment of shift BL. Pt is confused but easily reoriented and interactive with family ( kevin and daughter kevin) and staff. Family is supportive and assists pt
in adls as needed encouraging self care where appropriate. Plan of care reviewed with pt and family. Monitor in place, call amaya and personal belongings within reach. bed alarm activated and bed in lowest position with HOB @ 30 deg.
0000: Cardene gtt stopped due to SBP control. Pt took oral meds with water easily and stood w/ ax2 to urinate. New onset of hiccups noted. daughter stated that he usually gets them when in the hospital. USGPIV placed. Monitor in place with call amaya
and personal belongings within reach.
0300: SBP started to increase, one time order obtained. Pt displaying periods of self resolving apnea when sleeping. He states that his kids do mention tat he 'snores like a bear'. spO2 variable between 88-99% with a good pleth. Signs of increase
confusion on waking. NIH assessed please see EMR. Overnight provider made aware and came to bedside to assess. 2L NC applied. Monitor within place. Call amaya and personal belongings within reach. Bed in lowest position with HOB @ 30deg.
[2025-02-27 05:14] LABS: Hematocrit 31.8 % (39.0-52.0); Mean Corp Hgb Conc. 34.6 g/dL (33.0-37.0); Mean Corpuscular Volume 95.5 fL (80.0-94.0); Mean Platelet Volume 9.1 fL (7.4-10.4); Platelet Count 65 10^3/uL (130-400); Red Blood Cell Count 3.33 10^6/uL (4.70-6.10); Red Cell Dist. Width 13.5 % (11.5-14.5); White Blood Cell Count 6.8 10^3/uL (4.8-10.8)
[2025-02-27 05:28] LABS: Blood Urea Nitrogen 51 mg/dl (9-20); Calcium 8.7 mg/dl (8.4-10.2); Carbon Dioxide 19 mmol/L (22-30); Chloride 110 mmol/L (98-107); Estimated Creatinine Clearance 46 ml/min; Glucose 144 mg/dl (70-99); Potassium 4.9 mmol/L (3.5-5.1); Sodium 136 mmol/L (135-145); eGFR 43.64
[2025-02-27] MEDS: DECADRON 4 MG IV ×4 (06:04→23:23)
[2025-02-27 07:38] LABS: Glucose - Point of Care 127 mg/dl (70-99)
--- NOTE | 2025-02-27 08:29 | CON.INTV ---
Consultation
Consultation Request
Date/Time Consultation Requested: 02/26/20251752
Date/Time Consultation Performed: 02/27/2025826
Requesting Provider: Dr. Luna
Performing Provider: Dr. Scott
Reason for Consultation: Suspected intracranial/intralesional hemorrhage
Medical History
-
Chief Complaint: Vision loss
History of Present Illness:
69-year-old male with a past medical history of glioblastoma multiforme, chronic HFrEF, DM type II, hypertension, hypercholesterolemia and CKD who presents with left eye vision loss. Patient was eating a lemon Oreo 1 night prior to arrival when he
began to lose vision in his left eye. Vision loss was completely gone, not even able to see light. He follows at [facility] for his glioblastoma and is currently on Avastin and Optune. He has had radiation as well. Patient had a CT head showing
ill-defined right basal ganglia probable infiltrative neoplasm with intralesional hemorrhage and adjacent vasogenic edema likely related to his known malignant glioblastoma multiforme with treatment changes. There was no midline shift or
herniation. He was initially afebrile with pulse rate 70, respiratory rate 16, BP 153/81 and SaO2 98% on room air. Initial labs showed Hb 12.5, platelet count 64, and creatinine 1.7. Patient was given Decadron in the ER + hydralazine. He
initially was admitted to telemetry however his BP continue to elevate into the 180-190s and given his intralesional hemorrhage Cardene drip was started and he was upgraded to the ICU. [facility] services consulted for additional
management/recommendations.
PMHx: Glioblastoma multiforme, cardiomyopathy, DM type II, hypertension, hypercholesterolemia, diabetic amyotrophy (left eye), CKD, chronic HFrEF, LAC COURTE OREILLES
PSHx: Cardiac cath, cranial biopsy, shunt placement, vasectomy (1988)
Past Medical History
Past Medical History: Other (Above as per HPI)
Past Surgical History: Other (Above as per HPI)
Social History
Tobacco: Non-smoker
Alcohol: None
Drug: None
Living: With Family
Family History
Family History: Cancer (Father (unknown type)), Diabetes (Mother) and Hypertension (Maternal grandmother)
Allergies / Home Medications
Allergies
Allergy/AdvReac Type Severity Reaction Status Date / Time
Fish Containing Products Allergy Anaphylaxis Verified 02/25/25 20:57
Shellfish *RETIRED-05/21/12 Allergy Shortness Verified 02/25/25 19:00
(Shellfish) of Breath
Home Medications
�Medication �Instructions �Recorded �Confirmed �Last Taken �Type
insulin glargine 100 unit/mL 24 units SQ BID Diabetes 12/25/11 11/04/23 11/04/23 History
subcutaneous solution (Lantus
U-100 Insulin)
rosuvastatin 5 mg tablet 5 mg PO QPM High Cholesterol 12/25/11 11/04/23 11/03/23 History
acetaminophen 325 mg tablet 650 mg PO Q6HPRN PRN mild pain 11/04/23 11/04/23 11/01/23 History
(Tylenol)
aspirin 325 mg tablet 325 mg PO DAILY Blood Clot 11/04/23 11/04/23 11/04/23 History
Prevention/Tx
carvedilol 6.25 mg tablet (Coreg) 6.25 mg PO BID Heart 11/04/23 11/04/23 11/04/23 History
Disease/Condition
flaxseed oil 1,000 mg capsule 1,000 mg PO DAILY Supplement 11/04/23 11/04/23 11/04/23 History
hydralazine 25 mg tablet 25 mg PO BID Blood Pressure 11/04/23 11/04/23 11/04/23 History
insulin lispro 100 unit/mL 24 unit SC AC Diabetes 11/04/23 11/04/23 11/04/23 History
subcutaneous solution (Humalog
U-100 Insulin)
semaglutide 2 mg/dose (8 mg/3 mL) 2 mg SC MURRAY@1700 Diabetes 11/04/23 11/04/23 10/28/23 History
subcutaneous pen injector (Ozempic)
dexamethasone 2 mg tablet 2 mg PO BID 02/26/25 Unknown History
Review of Systems
-
History Source: Patient
All other systems: Negative unless noted
Vitals / Labs / Diagnostic Testing
Vital Signs
Temp Pulse Resp BP Pulse Ox
98.0 F 70 18 157/76 98
02/27/25 07:49 02/27/25 09:11 02/27/25 08:30 02/27/25 09:11 02/27/25 08:53
Lab Data
02/27/25 04:48
02/27/25 04:48
Diagnostic Testing:
Physical Exam
-
HEENT: Normocephalic and Anicteric
Cardiovascular: S1/S2 and Peripheral Edema (negative)
Respiratory: Clear, Wheeze (negative), Rales (negative), Rhonchi (negative) and Non-Labored Respirations
GI: Soft, Non Distended, Non Tender and Normal Bowel Sounds
Neurology: Awake, Alert, Tremors (negative) and Other (Left eye vision loss)
Skin: Warm and Dry
General: Respiratory Distress (negative), Comfortable, Fever (negative) and Chills (negative)
Assessment
-
Assessment: 69-year-old male with a past medical history of glioblastoma multiforme, chronic HFrEF, DM type II, hypertension, hypercholesterolemia and CKD who presents with left eye vision loss. Patient was eating a lemon Oreo 1 night prior to
arrival when he began to lose vision in his left eye. Vision loss was completely gone, not even able to see light. He follows at [facility] for his glioblastoma and is currently on Avastin and Optune. He has had radiation as well. Patient had a CT
head showing ill-defined right basal ganglia probable infiltrative neoplasm with intralesional hemorrhage and adjacent vasogenic edema likely related to his known malignant glioblastoma multiforme with treatment changes. There was no midline shift
or herniation. He was initially afebrile with pulse rate 70, respiratory rate 16, BP 153/81 and SaO2 98% on room air. Initial labs showed Hb 12.5, platelet count 64, and creatinine 1.7. Patient was given Decadron in the ER + hydralazine. He
initially was admitted to telemetry however his BP continue to elevate into the 180-190s and given his intralesional hemorrhage Cardene drip was started and he was upgraded to the ICU. [facility] services consulted for additional
management/recommendations.
Chronic conditions [employer]: Glioblastoma multiforme, cardiomyopathy, DM type II, hypertension, hypercholesterolemia, diabetic amyotrophy (left eye), CKD, chronic HFrEF, LAC COURTE OREILLES
Impression:
#Acute left eye monocular vision loss
#Hypertensive urgency started on Cardene drip in setting of intralesional hemorrhage of known glioblastoma
#Glioblastoma multiforme with suspected intralesional hemorrhage with adjacent vasogenic edema
#Chronic anemia
#Chronic thrombocytopenia
#CKD
#Suspected chronic subdural hematomas versus hygromas
#DM type II
#Hypertension
Plan:
- Continue with Decadron as per oncology
- Hold oral chemotherapy per oncology
- Neurochecks + NIHSS q shift
- Patient is being weaned off of his Cardene drip; was initially on to keep SBP<140mmHg in light of suspected intralesional hemorrhage with SBP in 180-190s
- Maintain MAP >65 and lower SBP by 25% in the first 24 hrs, then lower to <140/90mmhg after that
- Given the suspected intralesional hemorrhage within his glioblastoma multiforme, would keep SBP <140 mmHg
- Neurology consulted
- Concern for central retinal artery occlusion; continue with ASA and Plavix started
- Maintain SpO2 >90-94%
- Maintain MAP>65
- Replete electrolytes with K>4, Mg>2
- Maintain euglycemia with goal BG 140-180; continue basal�bolus SQ insulin
- Trend H/H and transfuse if needed to keep Hb>7g/dL; keep plt>100k (if possible)
- prn nebulized bronchodilators - not currently bronchospastic
- Incentive spirometer encouraged 10x per hour for at least 4 hrs a day
- DVT ppx: once able to, start HSQ vs LMWH
Code status: DNR/DNI
Patient is awaiting a bed at [facility]. Blood pressure is now improved, he is off cardene gtt and he has been downgraded to IMU. No additional recommendations at this time. [facility]/pulmonary service will now sign off. Thank you for
allowing us to be involved in the care of this patient. Please reconsult if there are any additional questions/concerns, or if patient's respiratory status deteriorates.
Data:
CT Head 02/25/2025:
Ill-defined right basal ganglia ill-defined probable infiltrative neoplasm with intralesional hemorrhage and adjacent vasogenic edema, likely related to malignant glioblastoma multiforme and treatment change. No midline shift or herniation.
Additional punctate focus of parenchymal hemorrhage in the superior right parietal lobe.
Small bilateral subdural collections may reflect hygromas or subdural hematomas.
Brain MRI 02/26/2025:
Complex posttreatment appearance of the brain status post treatment for glioblastoma multiforme. Probable combination of infiltrative neoplasm and posttreatment signal alteration in the right hemisphere and right basal ganglia. Signal changes in the
right basal ganglia and adjacent junction with the right temporal lobe favored to represent parenchymal calcification, although subacute blood products could have similar signal characteristics. More localized signal alteration in the white matter
adjacent to the atrium of the right lateral ventricle either representing neoplasm, subacute ischemia, or posttreatment related coagulative necrosis.
Bihemispheric subdural fluid collections.
Ventriculostomy catheter in place.
Transthoracic echocardiogram 11/06/2023:
Normal left ventricular chamber size. Mild concentric left ventricular
hypertrophy. Moderately reduced left ventricular systolic function. Global
hypokinesis. Left ventricular ejection fraction is 35-40%.
No significant valvular disease.
Compared to the previous echo from Jun 2023, which was reviewed, EF was 30-35%
at that time.
Total time spent today was 78 minutes for this encounter. Time includes reviewing laboratory test/imaging results, reviewing pertinent medical records, obtaining and reviewing medical history, performing an appropriate exam, ordering medications,
tests and procedures. Time also includes documentation of this encounter, coordinating patient care and communicating with other healthcare professionals. Total time does not include separately billed tests performed on this date of service.
--- NOTE | 2025-02-27 08:48 | CON.NEURO ---
Addendum entered and electronically signed by Ronny Nassar MD 02/27/25 12:57:
Studies reviewed.
I have personally examined the patient. I reviewed and agree with the SOILS ENGINEER's Note.
My addenda:
Awake, alert, interactive. No acute distress.
Speech intact.
Follows 2-step requests w/ significant difficulty. No tremor.
Extra-ocular movements limited testing due to blindness except for the right temporal nasal field
Facial movements full and symmetric. Hearing intact to normal conversational volume.
Normal UE movements bilaterally. Reduced left upper and lower strength 4+/5
Neck: full ROM.
Chest: no dyspnea
Heart: no JVD
Ext: (-) Clubbing, (-) Cyanosis, (-) Edema
IMPRESSIONS/RECOMMENDATIONS:
Abrupt onset of left eye blindness
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
Communicated with his primary neurologist who suggested either:
add Clopidogrel 75 MG x 21 days then discontinue
continue outpatient aspirin
continue increased Dexamethasone dosing as below
D/W patient / family
All questions answered.
Will continue to follow as needed
Original Note:
Documented by User: Dalia Cao NP 02/27/25 11:37
Neuro Assessment/Plan
Assessment
Patient is a 69-year-old right-handed male with a history of glioblastoma status post surgical management by neurosurgery at [facility], status post shunt, chronic heart failure, diabetes, CKD who presented to [facility] from home on 02/25/2025 with sudden
onset loss of complete vision loss from his left eye.
Brain MRI 02/26/2025: Complex posttreatment appearance of the brain status post treatment for glioblastoma multiforme. Probable combination of infiltrative neoplasm and posttreatment signal alteration in the right hemisphere and right basal ganglia.
Signal changes in the right basal ganglia and adjacent junction with the right temporal lobe favored to represent parenchymal calcification, although subacute blood products could have similar signal characteristics. More localized signal alteration
in the white matter adjacent to the atrium of the right lateral ventricle either representing neoplasm, subacute ischemia, or posttreatment related coagulative necrosis.
Bihemispheric subdural fluid collections.
Ventriculostomy catheter in place.
Head CT 02/25/2025: Ill-defined right basal ganglia ill-defined probable infiltrative neoplasm with intralesional hemorrhage and adjacent vasogenic edema, likely related to malignant glioblastoma multiforme and treatment change. No midline shift or
herniation. Additional punctate focus of parenchymal hemorrhage in the superior right parietal lobe. Small bilateral subdural collections may reflect hygromas or subdural hematomas.
Brain MRI 11/05/2023:
1. Large 10 cm infiltrative poorly circumscribed intra-axial mass in the right basal ganglia, right thalamus, right insular cortex, right temporal lobe, right parietal lobe, and right midbrain causing mass effect with effacement of the right
lateral ventricle and 5 mm right to left midline shift. Diagnostic possibilities are (1) MALIGNANT GLIOBLASTOMA MULTIFORM, (2) less likely primary [employer] lymphoma, or (3) less likely metastatic disease.
2. No MRI evidence for obstructive hydrocephalus or brain herniation.
3. No MRI evidence for acute intracranial hemorrhage.
Labs: Cholesterol 216, LDL 123, Hgb A1C 7.2
Plan
Impression:
I. Acute onset of left eye monocular vision loss possibly due to central retinal artery occlusion (CRAO) not TNK/IAT candidate given onset of symptoms 3 days ago, platelet<100 and concern of subacute blood products in the right hemisphere.
II. Glioblastoma s/p resection and shunt placement follows with neurosurgery Dr. Nabil López and medical oncology Dr. Patrick Frost of [facility]
Plan:
-start clopidogrel 75 mg daily in addition to aspirin 81 mg daily, monitor closely for bleeding
-normotension and normoglycemia with hgb goal <7
-current LDL 123 with goal <70, start atorvastatin 80 mg nightly
-neurochecks and NIHSS per unit guidelines
-check CTA head and neck
-DVT prophylaxis
-agree with dexamethasone for vasogenic edema, 10 mg IV now then 4 mg IV every 6, monitor blood glucose levels while on steroids
-stroke education material to be provided
-awaiting transfer to [facility]
All questions encouraged and answered, plan of care discussed with Dr. Nassar, hospitalist, patient and family
Consultation
Order
Date of Consultation: 02/27/25
Requesting Provider: hospitalist
Reason for Consult: vision loss to right eye
Subjective/Objective
Subjective Data
Date of Service: February 27, 2025
The patient is a 69-year-old right-handed male with history of glioblastoma s/p resection, shunt placement, currently on Avastin presented to [facility] on 02/25/2025 with acute onset of left eye monocular painless vision loss. He denied any headache.
There was no nausea or vomiting. No recent head trauma. Denies any other focal logical deficits. Exam shows loss of light sensitivity in that eye. Extraocular movements are otherwise intact. CT scan of the brain revealed progression of disease
with right basal ganglia infiltrative neoplasm and intralesional hemorrhage and adjacent vasogenic edema likely related to malignant glioblastoma and treatment change. No midline shift, or herniation. Additional punctate focus of parenchymal
hemorrhage in the superior right parietal lobe. He follows with neurosurgery Dr. López and medical oncology Dr. Frost from [facility]. Per discussion with oncology, this may be related to interval development of loculated bilateral subdural
collections measuring approximately 10 mm on the right and approximate 9 mm on the left with underlying mass effect vs Avastin. He is awaiting transfer to [facility] at this time. His current NIHSS is 7 for drift in left upper and lower
extremities as well as left hemianopia. Unfortunately, he is not TNK/IAT candidate given onset of symptoms 3 days ago, platelet<100 and concern of subacute blood products in the right hemisphere. Was on aspirin and rosuvastatin prior to hospital
admission.
Objective Data
Vital Signs
Temp Pulse Resp BP Pulse Ox
98.0 F 73 19 160/80 96
02/27/25 07:49 02/27/25 06:45 02/27/25 06:45 02/27/25 06:45 02/27/25 06:45
Lab Results
02/27/25 04:48
02/27/25 04:48
PT 12.8 Sec (11.4-14.6) 02/26/25 04:58
INR 0.91 02/26/25 04:58
APTT 27.3 Sec (23.4-35.0) 02/26/25 04:58
Sodium 136 mmol/L (135-145) 02/27/25 04:48
Potassium 4.9 mmol/L (3.5-5.1) 02/27/25 04:48
BUN 51 mg/dl (9-20) H 02/27/25 04:48
Glucose 144 mg/dl (70-99) H 02/27/25 04:48
Calcium 8.7 mg/dl (8.4-10.2) 02/27/25 04:48
LDL Cholesterol, Calc 123 mg/dl 02/26/25 04:58
Patient Allergies
Fish Containing Products Allergy (Verified 02/25/25 20:57)
Anaphylaxis
Shellfish *RETIRED-05/21/12 (Shellfish) Allergy (Verified 02/25/25 19:00)
Shortness of Breath
CVA Assessment
Onset of Stroke Symptoms
Date of onset of symptoms: 02/25/25
Date last time pt seen normal: 02/25/25
NIH Stroke Score
Level of Consciousness: 0 - Alert
LOC Questions: 2-Neither correct
LOC Commands: 0-Performs both correctly
Best Horizontal Gaze: 0-Normal
Visual Hansen: 1=Partial hemianopia
Facial Palsy: 0=Normal, symmetrical
Motor - Right Arm: 0=No drift 10 seconds
Motor - Left Arm: 1=Drift < 10 seconds
Motor - Right Le-No drift 5 seconds
Motor - Left Le-Drift < 5 seconds
Limb Ataxia: 2-Present in two limbs
Sensation: 0-Normal
Best Language: 0-No aphasia
Dysarthria: 0-Normal
Extinction and Inattention: 0-No abnormality
NIH Total Score:: 7
Tenecteplase Contraindications
Inclusion and Exclusion criteria reviewed: Yes
Reasons for NON-Tx with Thrombolytics ABSOLUTE Exclusions: Platelet count < 100 and Time-out of window
IAT Contraindications: >6 hrs from onset/last seen normal
Modified Wittmann Score (MRS)
-
Modified Wittmann Scale (mRS): Moderately severe disability. Unable to attend to bodily needs/walk.
Score: 4
Review of Systems
-
History Source: Patient and Family
Constitutional: No Symptoms
EENT: Decreased Vision (right eye)
Respiratory: No Symptoms
Cardiac: No Symptoms
Abdomen/GI: No Symptoms
Genitourinary: No Symptoms
Musculoskeletal: No Symptoms
Skin: No Symptoms
Neuro: No Symptoms
Endocrine: No Symptoms
Hematologic / Lymphatic: No Symptoms
Physical Exam
-
General: Comfortable and Appears Stated Age
HEENT: Normocephalic and Atraumatic
Neck: Full Range of Motion
Respiratory: No Dyspnea
Cardiac: No JVD
GI: Non-distended
Skin: Unremarkable
Extremities: No Clubbing, No Cyanosis and No Edema
Psych: Confused
Extended Neurological Exam
Mood & Affect: Mood Unremarkable
Attention Span & Concentration: Awake, Alert, Interactive and Mild Difficulty with 2 Step Request
Memory: Reduced
Tremor: Hand Tremor Absent and Head Tremor Absent
Speech: Quality Unremarkable, Quantity Unremarkable and Rate of Production Unremarkable
Cranial Nerve II: Left Eye: Visual Hansen Reduced
Cranial Nerve II: Right Eye: Visual Hansen Reduced
Cranial Nerves III, IV, : Extraocular Movement: Extraocular Movement Full in all Directions
Cranial Nerve VII: Facial Symmetry: Normal Facial Symmetry
Cranial Nerve VIII: Hearing: Unremarkable Hearing to Normal Conversational Volume
Cranial Nerves IX, X: Palate Movement: Palate Elevation Symmetric
Cranial Nerve XII: Tongue Protusion: Midline
Muscle Strength, Overall: Reduced on Left (4/5 RUE/LLE)
Muscle Bulk & Tone: Bulk Unremarkable and Tone Unremarkable
Pronator Drift: Drift in Left Upper Extremity and Drift in Left Lower Extremity
Data Reviewed
-
CT Head: Report Reviewed and Image Reviewed
MRI Head: Report Reviewed and Image Reviewed
Labs: Report Reviewed
Reviewed with: Physician, Patient and Family
Old Records: Summarized
Medications
-
Active Medications
Generic Name Dose Route Start Last Admin
Trade Name Freq PRN Reason Stop Dose Admin
Acetaminophen 650 mg 02/26/25 02:55 02/26/25 16:52
Acetaminophen 325 Mg Tablet PO 03/26/25 02:54 650 mg
Q4HPRN PRN Administration
temp greater than 38C (100.4F)
Acetaminophen 650 mg 02/26/25 02:55
Acetaminophen 650 Mg Rectal Suppository RECTAL 03/26/25 02:54
Q4HPRN PRN
temp greater than 38C (100.4F)
Artificial Tears 1 drops 02/26/25 02:55
Artificial Tears Pf (Refresh) 10 Drop Droperette LEFT EYE 03/26/25 02:54
QIDPRN PRN
dry eye or irritation
Carvedilol 6.25 mg 02/26/25 08:00 02/26/25 21:45
Carvedilol 6.25 Mg Tablet PO 03/26/25 07:59 6.25 mg
BID RICHARD Administration
Dexamethasone Sodium Phosphate 4 mg 02/26/25 06:00 02/27/25 06:04
Dexamethasone 4 Mg/Ml 1 Ml Vial IV 03/26/25 05:59 4 mg
Q6 RICHARD Administration
Dextrose 12.5 grams 02/26/25 04:00
Dextrose 50% (0.5 Grams/Ml) 50 Ml Syringe IV 03/26/25 03:59
[id number] PRN
hypoglycemia
Protocol
Glucagon 1 mg 02/26/25 04:00
Glucagon 1 Mg Vial IM 03/26/25 03:59
PRN PRN
hypoglycemia - no IV access
Protocol
Hydralazine HCl 25 mg 02/26/25 08:00 02/26/25 21:44
Hydralazine 25 Mg Tablet PO 03/26/25 07:59 25 mg
BID RICHARD Administration
Insulin Glargine 30 units/ 0.3 mls @ 0 mls/hr 02/26/25 08:00 02/26/25 08:28
Device SC 03/26/25 07:59 0.3 mls
DAILY RICHARD Administration
As Directed
Nicardipine/Sodium Chloride 40 mg in 200 mls @ 0 mls/hr 02/26/25 17:30 02/26/25 18:06
Cardene IV 200 mls
PER PROTOCOL RICHARD Administration
Protocol
Per Protocol
Insulin Aspart 15 units 02/26/25 07:30 02/26/25 18:24
Insulin Aspart (Novolog) 100 Units/Ml 3 Ml Flexpen SC 03/26/25 07:29 15 units
AC RICHARD Administration
Insulin Aspart 0 units 02/26/25 07:30 02/26/25 17:34
Insulin Aspart Moderate Resistance 300 Units/3 Ml Pen.Injctr SC 03/26/25 07:29 3 units
AC RICHARD Administration
Protocol
Miconazole Nitrate 0 applic 02/26/25 08:00 02/26/25 21:45
Miconazole Powder Bottle TOPICAL 03/26/25 07:59 1 applic
BID RICHARD Administration
Ondansetron HCl 4 mg 02/26/25 02:55
Ondansetron 4 Mg/2 Ml Vial IV 03/26/25 02:54
Q6HPRN PRN
NAUSEA/VOMITING
Rosuvastatin Calcium 10 mg 02/26/25 08:00 02/26/25 09:29
Rosuvastatin (Crestor) 10 Mg Tablet PO 03/26/25 07:59 10 mg
DAILY RICHARD Administration
Sodium Chloride 0 flush 02/26/25 04:00
Sodium Chloride 0.9% (Flush) Syringe IV 03/26/25 03:59
PER PROTOCOL RICHARD
Home Medications
�Medication �Instructions �Recorded
insulin glargine 100 unit/mL 24 units SQ BID Diabetes 12/25/11
subcutaneous solution (Lantus
U-100 Insulin)
rosuvastatin 5 mg tablet 5 mg PO QPM High Cholesterol 12/25/11
acetaminophen 325 mg tablet 650 mg PO Q6HPRN PRN mild pain 11/04/23
(Tylenol)
aspirin 325 mg tablet 325 mg PO DAILY Blood Clot 11/04/23
Prevention/Tx
carvedilol 6.25 mg tablet (Coreg) 6.25 mg PO BID Heart 11/04/23
Disease/Condition
flaxseed oil 1,000 mg capsule 1,000 mg PO DAILY Supplement 11/04/23
hydralazine 25 mg tablet 25 mg PO BID Blood Pressure 11/04/23
insulin lispro 100 unit/mL 24 unit SC AC Diabetes 11/04/23
subcutaneous solution (Humalog
U-100 Insulin)
semaglutide 2 mg/dose (8 mg/3 mL) 2 mg SC MURRAY@1700 Diabetes 11/04/23
subcutaneous pen injector (Ozempic)
dexamethasone 2 mg tablet 2 mg PO BID 02/26/25

Documented by User: Ronny Nassar MD 02/27/25 12:28
Neuro Assessment/Plan
Assessment
Patient is a 69-year-old right-handed male with a history of glioblastoma status post surgical management by neurosurgery at [facility], status post shunt, chronic heart failure, diabetes, CKD who presented to [facility] from home on 02/25/2025 with sudden
onset loss of complete vision loss from his left eye.
Brain MRI 02/26/2025: Complex posttreatment appearance of the brain status post treatment for glioblastoma multiforme. Probable combination of infiltrative neoplasm and posttreatment signal alteration in the right hemisphere and right basal ganglia.
Signal changes in the right basal ganglia and adjacent junction with the right temporal lobe favored to represent parenchymal calcification, although subacute blood products could have similar signal characteristics. More localized signal alteration
in the white matter adjacent to the atrium of the right lateral ventricle either representing neoplasm, subacute ischemia, or posttreatment related coagulative necrosis.
Bihemispheric subdural fluid collections.
Ventriculostomy catheter in place.
Head CT 02/25/2025: Ill-defined right basal ganglia ill-defined probable infiltrative neoplasm with intralesional hemorrhage and adjacent vasogenic edema, likely related to malignant glioblastoma multiforme and treatment change. No midline shift or
herniation. Additional punctate focus of parenchymal hemorrhage in the superior right parietal lobe. Small bilateral subdural collections may reflect hygromas or subdural hematomas.
Brain MRI 11/05/2023:
1. Large 10 cm infiltrative poorly circumscribed intra-axial mass in the right basal ganglia, right thalamus, right insular cortex, right temporal lobe, right parietal lobe, and right midbrain causing mass effect with effacement of the right
lateral ventricle and 5 mm right to left midline shift. Diagnostic possibilities are (1) MALIGNANT GLIOBLASTOMA MULTIFORM, (2) less likely primary [employer] lymphoma, or (3) less likely metastatic disease.
2. No MRI evidence for obstructive hydrocephalus or brain herniation.
3. No MRI evidence for acute intracranial hemorrhage.
Labs: Cholesterol 216, LDL 123, Hgb A1C 7.2
Impression:
I. Acute onset of left eye monocular vision loss possibly due to central retinal artery occlusion (CRAO) not TNK/IAT candidate given onset of symptoms 3 days ago, platelet<100 and concern of subacute blood products in the right hemisphere.
II. Glioblastoma s/p resection and shunt placement follows with neurosurgery Dr. Nabil López and medical oncology Dr. Patrick Frost of [facility]
Plan
-start clopidogrel 75 mg daily in addition to aspirin 81 mg daily, monitor closely for bleeding
-normotension and normoglycemia with hgb goal <7
-current LDL 123 with goal <70, start atorvastatin 80 mg nightly
-neurochecks and NIHSS per unit guidelines
-check CTA head and neck
-DVT prophylaxis
-agree with dexamethasone for vasogenic edema, 10 mg IV now then 4 mg IV every 6, monitor blood glucose levels while on steroids
-stroke education material to be provided
-awaiting transfer to [facility]
All questions encouraged and answered, plan of care discussed with Dr. Nassar, hospitalist, patient and family
CVA Assessment
NIH Stroke Score
NIH Total Score:: 7
Modified Wittmann Score (MRS)
-
Score: 4
--- NOTE | 2025-02-27 08:54 | W.PN.HOSP.TC ---
Today's Communication/Plan
-
Neurology consult
MRI and MRV of the brain
Awaited transfer to [facility]
Assessment / Plan
Assessment / Plan
IMPRESSION:
69-year-old with history of glioblastoma s/p resection, shunt placement, currently on Avastin presenting to the emergency department with acute onset of left eye monocular vision loss this evening a few hours prior to arrival in the emergency
department. He denied any headache. There was no nausea or vomiting. Denies any other focal logical deficits. He denies pain in that eye. Exam shows loss of light sensitivity in that eye. Extraocular movements are otherwise intact. CT scan of
the brain revealed progression of disease with right basal ganglia infiltrative neoplasm and intralesional hemorrhage and adjacent vasogenic edema likely related to malignant glioblastoma and treatment change. No midline shift, or herniation.
Additional punctate focus of parenchymal hemorrhage in the superior right parietal lobe. Per discussion with oncology, this may be related to interval development of loculated bilateral subdural collections measuring approximately 10 mm on the
right and approximate 9 mm on the left with underlying mass effect vs avastin.
PLAN:
Acute left eye vision loss
Seems painless
Patient has complex right hemispheric harris and white matter changes which could explain but with sudden complete vision loss new acute stroke, thrombosis of the central retinal artery/vein in Differentials. Patient on Avastin as well. Not an
ideal candidate for anticoagulation I feel because of the concern of subacute blood products in the right hemisphere
Patient is accepted at [facility] and awaited transfer.
In meantime we will ask neurology to weigh in.
Will also check MRI and MRV of the brain in meantime.
GBM with intralesional hemorrhage versus calcification.
- Patient is accepted to [facility] neurosurgery on Med/Surg neuro
- Neurochecks every 4 hours
- Keep SBP less than 140-160
- Holding aspirin for now, DVT prophylaxis with SCDs
- Continue dexamethasone for vasogenic edema, 10 mg IV now then 4 mg IV every 6
- Patient is not on any seizure prophylaxis, will monitor for now
Hypertension
- If passed swallow, continue patient's carvedilol and hydralazine
- Continue with rosuvastatin
- Maintain systolic blood pressure less than 160. Yesterday he needed IV nicardipine drip which is off now.
Diabetes
� Continue with his Lantus and mealtime aspart. Accu-Cheks are okay this morning.
Discussed with neurology
Discussed with [facility]
Discussed with at bedside
DVT prophylaxis�SCDs
CODE STATUS�DNR
Total time spent on today's encounter was 52 minutes which included time spent in counseling the patient/family regarding diagnosis and treatment plan as listed above, goals of care, and symptom management. Case was discussed with nursing staff,
specialists, and care coordinators/case management. All labs and imaging personally reviewed by me. Remainder the time spent in detailed review of previous records, lab data, imaging, and other medical provider documentation.
Anticipated Discharge: Today
Subjective/Interval History
-
Date of Service: February 27, 2025
Persistent left eye vision loss. Today declines any headache symptoms.
No nausea vomiting.
Denies any chest pain or shortness of breath. No fever chills.
Objective Data
-
Labs:
Laboratory Results
02/27/25
04:48
WBC 6.8
Hgb 11.0 L
Hct 31.8 L
Plt Count 65 L
Sodium 136
Potassium 4.9
Chloride 110 H
Carbon Dioxide 19 L
BUN 51 H
Creatinine 1.7 H
Glucose 144 H
Calcium 8.7
Vital Signs:
Vital Signs
Temp Pulse Resp BP Pulse Ox
98.0 F 59 18 157/76 98
02/27/25 07:49 02/27/25 08:30 02/27/25 08:30 02/27/25 08:30 02/27/25 08:53
I&O
02/26/25 02/27/25 02/28/25
06:59 06:59 06:59
Output Total 200 / 200 400 / 400
Balance -200 / -200 -400 / -400
Physical Exam
-
General: Comfortable
Respiratory: Non Labored Respirations; Negative Accessory Resp Muscle Use
Cardiac: Regular Rhythm and S1/S2
GI: Soft
Neuro: AO x 3 and Other (Still with the complete loss of vision in the left eye. )
Psych: Calm
Data Reviewed
-
MRI: Report Reviewed by me (MRI of the brain)
Labs: Labs Reviewed by me
--- NOTE | 2025-02-27 08:57 | PTCARENOTE ---
Assumed care of pt. approx 0700.
NIH unchanged from night team.
Still awaiting bed from [facility] --> neuro consulted, Brain MRI ordered.
[2025-02-27] MEDS: NOVOLOG FLEXPEN-MODERATE RESISTANCE SC (09:01)
[2025-02-27] MEDS: CRESTOR 10 MG PO (09:11)
[2025-02-27] MEDS: APRESOLINE 25 MG PO ×2 (09:11→20:11)
[2025-02-27] MEDS: COREG 6.25 MG PO ×2 (09:11→20:11)
[2025-02-27] MEDS: LANTUS 0.3 UNITS SC (09:12)
[2025-02-27] MEDS: DESENEX/MITRAZOL/ZEASORB 1 APPLIC TOPICAL ×2 (09:12→23:23)
[2025-02-27] MEDS: NOVOLOG FLEXPEN 15 UNITS SC ×3 (09:45→18:02)
--- NOTE | 2025-02-27 10:04 | CM ---
Initial assessment completed with patient and who live together in a 2 story home plus basement with a ramp to enter the home, B/B on . [employer] patient required assistance from for showers and hygiene needs. Patient ambulates with a RW,
has a W/CH, 4 prong cane, bedside commode and rolling shower chair. Patient has palliative care with [facility] and a nurse visits approximately every 2 months. Does have a HC-POA. No psychiatric hospitalizations. Has been in the [employer]. He is not eligible for VA benefits. PCP is Dr. Lizbeth Lucio and pharmacy is [facility] in [place]. Discharge POC: Will be discharged to [facility] when bed is available.
--- NOTE | 2025-02-27 10:46 | PTCARENOTE ---
pt. downgraded IMU.
No change in assessment.
[2025-02-27] MEDS: PLAVIX 75 MG PO (12:26)
[2025-02-27] MEDS: ASPIR LOW (ENTERIC COATED) 81 MG PO (12:26)
[2025-02-27] MEDS: PROTONIX 40 MG PO (12:26)
[2025-02-27] MEDS: TRANDATE 10 MG IV ×2 (12:26→22:51)
[2025-02-27 12:27] LABS: Glucose - Point of Care 155 mg/dl (70-99)
[2025-02-27] MEDS: NOVOLOG FLEXPEN-MODERATE RESISTANCE 1 UNITS SC ×2 (12:33→18:01)
--- NOTE | 2025-02-27 12:49 | PTCARENOTE ---
MRI will call with availability after 1500.
[2025-02-27 17:18] LABS: Glucose - Point of Care 187 mg/dl (70-99)
--- NOTE | 2025-02-27 18:32 | PTCARENOTE ---
Update given to [facility] transport team.
Still no available beds.
MRI completed.
No change in clinical assessment.
[2025-02-27 21:17] LABS: Glucose - Point of Care 233 mg/dl (70-99)
--- NOTE | 2025-02-27 23:04 | PTCARENOTE ---
Patient Aox3, NSR on monitor, +pulses, edema in left lower ankle. Labetalol given for SBP >160. Denies pain. NIH-6, ST[facility], pupils 3/3 brisk. Weak slicing machine feeder but moves all extremities. [facility] called with open bed, report called, awaiting transfer.
[2025-02-28] VITALS: BP 176/83
--- NOTE | 2025-02-28 02:35 | PTCARENOTE ---
Pt picked up by Acute care ambulance approx 0200.
--- NOTE | 2025-03-02 09:02 | CM ---
Patient was discharged to [facility] for continuation of specialized acute care.
--- NOTE | 2025-03-02 09:04 | CM ---
Patient was discharged to [facility] on 02/27/25 in PM for continuation of specialized acute care.
== END 2025-02-28 02:00 | disposition short-term general hospital (02) | DRG 54 ==
LOC: ICU 02:19
PROVIDERS: Nurse Practitioner; Nurse Practitioner Family; ADMITTING PHYSICIAN Internal Medicine; ATTENDING PHYSICIAN Internal Medicine; CONSULT PHYSICIAN Internal Medicine Critical Care Medicine; CONSULT PHYSICIAN Psychiatry & Neurology Neurology; EMERGENCY PHYSICIAN Emergency Medicine; FAMILY PHYSICIAN Family Medicine; OTHER PHYSICIAN Internal Medicine Hematology & Oncology
DX: C71.9 Malignant neoplasm of brain, unspecified (principal); G93.6 Cerebral edema; I61.9 Nontraumatic intracerebral hemorrhage, unspecified; I13.0 Hypertensive heart and chronic kidney disease with heart failure and stage 1 through stage 4 chronic kidney disease, or unspecified chronic kidney disease; I50.22 Chronic systolic (congestive) heart failure; I42.9 Cardiomyopathy, unspecified; Z80.9 Family history of malignant neoplasm, unspecified; H54.62 Unqualified visual loss, left eye, normal vision right eye; N18.9 Chronic kidney disease, unspecified; E11.22 Type 2 diabetes mellitus with diabetic chronic kidney disease; Z79.82 Long term (current) use of aspirin; Z79.4 Long term (current) use of insulin; Z66 Do not resuscitate; R29.707 NIHSS score 7; D69.6 Thrombocytopenia, unspecified; E11.44 Type 2 diabetes mellitus with diabetic amyotrophy; E78.00 Pure hypercholesterolemia, unspecified; I16.0 Hypertensive urgency; Z79.85 Long-term (current) use of injectable non-insulin antidiabetic drugs; Z82.49 Family history of ischemic heart disease and other diseases of the circulatory system; Z83.3 Family history of diabetes mellitus
CPT/HCPCS: 70450; 70496; 70498; 70546; 70553; 71045; 80048; 80053; 80061; 82962; 85025; 85027; 85610; 85730; 86850; 86900; 86901; 92523; 92610; 93005; 97163; 97167; 97530; 99285; A9575; A9585; Q9967